=== PATIENT | female | born 2000 | race Two or more races ===

== ENCOUNTER 2021-01-05 01:29 | Emergency (ER) | payer OTHER, SELFPAY ==
[2021-01-05 02:56] VITALS: BP 138/69; PULSE 84; RESP 14; TEMP 36.7; O2SAT 100; BMI 27.4
[2021-01-05 06:36] LABS: MANUAL DIFF FLAG NO
--- NOTE | 2021-01-05 06:38 | ED_ITS ---
HPI - General Chief complaint: Vaginal Bleeding Stated complaint: 5 weeks /cramping,spotting Time Seen by Provider: 01/05/21 03:05 Source: patient Mode of arrival: ambulatory History of Present Illness HPI Narrative: 20-year-old female, gravid, EGA 5 weeks based on LMP, presents with complaints of cramping and vaginal spotting without clots but denies any associated fever, chills, nausea, vomiting, diarrhea. Patient states that during her course here in the emergency department the cramping has subsided as well as the vaginal spotting has lessened. She has an OB appointment next week. Related Data Previous Rx's Medication Instructions Recorded sulfamethoxazole 800 1 tab PO Q12H 3 Days #6 tab 01/05/21 mg-trimethoprim 160 mg tablet (Bactrim DS) Allergies Allergy/AdvReac Type Severity Reaction Status Date / Time No Known Allergies Allergy Verified 10/04/20 10:57 Review of Systems Review of Systems: Pertinent positives and negatives as stated in HPI 10 point review of systems is otherwise negative. PMFSH Past Medical History Source: nursing notes reviewed Medical History No significant past medical history Overweight (BMI 25.0-29.9) Surgical History No significant past surgical history Family History Family History Maternal Grandmother Breast cancer Diabetes mellitus Social History Social History Alcohol intake: never Advance Directives: No Advance Directives Information Provided: No Patient : Yes Physical Exam Vital Signs: Vital Signs: Last Vital Signs Temp 98.0 F 01/05/21 02:56 Pulse 84 01/05/21 02:56 Resp 14 01/05/21 02:56 BP 138/69 01/05/21 02:56 Pulse Ox 100 01/05/21 02:56 Body Mass Index 27.4 VITAL SIGNS: Reviewed. GENERAL: Well developed, well nourished, in no acute distress. HEAD: Normocephalic/atraumatic EYES: PERRLA, EOMI LUNGS: Normal breath sounds. No adventitious sounds or accessory muscle use. SpO2<100> CARDIOVASCULAR: Regular rate and rhythm without noted murmurs ABDOMEN: Soft, non-tender, non-distended with bowel sounds. SKIN: Inspection of the skin reveals no rashes NEUROLOGIC: Alert and oriented x 4. Course Course Course Narrative: 20-year-old female with history and clinical presentation likely secondary to UTI or dehydration and on review of all investigations patient has a significant UTI and urine is negative and patient report s vaginal spotting has improved as well as complete resolution of pelvic cramping. Initial antibiotics and then be discharged with remaining course instructions to follow-up with PCP. MDM - OB/Uterine Contractions Lab Data Result diagrams: 01/05/21 06:31 01/05/21 06:31 Labs: Lab Results 01/05/21 01/05/21 01/05/21 Range/Units 06:18 06:18 06:31 WBC 10.6 (4.8-10.8) X10*3/uL RBC 5.11 (4.20-5.50) X10*6/uL Hgb 13.5 (12.0-16.0) g/dl Hct 42.1 (37-47) % MCV 82.4 (80-98) fL MCH 26.4 L (27.0-33.0) pg MCHC 32.1 (31.0-35.0) g/dl RDW 12.7 (11.0-16.0) % Plt Count 290 (160-400) X10*3/uL MPV 11.6 (9.4-12.3) fL Immature Gran % (Auto) 0.3 (0.0-0.4) % Neut % (Auto) 70.1 (45-73) % Lymph % (Auto) 23.4 (20-40) % Kimble % (Auto) 5.1 (2-11) % Eos % (Auto) 0.7 (0-4) % Baso % (Auto) 0.4 (0-2) % Lymph # (Auto) 2.5 (1.2-4.9) X10*3/uL Kimble # (Auto) 0.5 (0.1-1.2) X10*3/uL Eos # (Auto) 0.1 (0.0-0.4) X10*3/uL Baso # (Auto) 0.0 (0.0-0.2) X10*3/uL Abs Immat Gran (auto) 0.03 (0.00-0.03) X10*3/uL Absolute Neuts (auto) 7.4 (2.0-8.3) X10*3/uL Absolute Nucleated RBC 0.000 (0.0-0.012) X10*3/uL Nucleated RBC % (auto) 0.0 (0.0-0.2) /100WBC Sodium (135-145) mmol/L Potassium (3.3-5.1) mmol/L Chloride (96-108) mmol/L Carbon Dioxide (22-29) mmol/L Anion Gap (12-20) BUN (9-16) mg/dL Creatinine (0.5-1.4) mg/dL Estim Creat Clear Calc Estimated GFR Random Glucose (60-115) mg/dL Calcium (8.4-10.2) mg/dL Total Bilirubin (0.0-1.0) mg/dL AST (5-31) U/L ALT (0-31) U/L Alkaline Phosphatase (39-117) U/L Total Protein (6.5-8.0) g/dL Albumin (3.5-5.0) g/dL Urine Color PINK Urine Appearance HAZY Urine pH 6.5 (5.0-8.0) Ur Specific [place] 1.010 (1.005-1.025) Urine Protein 1+ H (NEG-TRACE) MG/DL Urine Glucose (UA) NEG (NEG) MG/DL Urine Ketones NEG (NEG) MG/DL Urine Blood 3+ H (NEG) Urine Nitrite NEG (NEG) Ur Leukocyte Esterase 2+ H (NEG) Urine RBC 76-150 H (0) /HPF Urine WBC 10-14 H (0-4) /HPF Urine WBC Clumps NOTED Ur Squamous Epith Cells 1+ /LPF Urine Bacteria TRACE /LPF Urine Mucus TRACE /LPF Urine Test NEGATIVE (NEGATIVE) 01/05/21 Range/Units 06:31 WBC (4.8-10.8) X10*3/uL RBC (4.20-5.50) X10*6/uL Hgb (12.0-16.0) g/dl Hct (37-47) % MCV (80-98) fL MCH (27.0-33.0) pg MCHC (31.0-35.0) g/dl RDW (11.0-16.0) % Plt Count (160-400) X10*3/uL MPV (9.4-12.3) fL Immature Gran % (Auto) (0.0-0.4) % Neut % (Auto) (45-73) % Lymph % (Auto) (20-40) % Kimble % (Auto) (2-11) % Eos % (Auto) (0-4) % Baso % (Auto) (0-2) % Lymph # (Auto) (1.2-4.9) X10*3/uL Kimble # (Auto) (0.1-1.2) X10*3/uL Eos # (Auto) (0.0-0.4) X10*3/uL Baso # (Auto) (0.0-0.2) X10*3/uL Abs Immat Gran (auto) (0.00-0.03) X10*3/uL Absolute Neuts (auto) (2.0-8.3) X10*3/uL Absolute Nucleated RBC (0.0-0.012) X10*3/uL Nucleated RBC % (auto) (0.0-0.2) /100WBC Sodium 139 (135-145) mmol/L Potassium 3.8 (3.3-5.1) mmol/L Chloride 107 (96-108) mmol/L Carbon Dioxide 23 (22-29) mmol/L Anion Gap 13 (12-20) BUN 10 (9-16) mg/dL Creatinine 0.72 (0.5-1.4) mg/dL Estim Creat Clear Calc 121.6 Estimated GFR > 60 Random Glucose 99 (60-115) mg/dL Calcium 9.7 (8.4-10.2) mg/dL Total Bilirubin 0.5 (0.0-1.0) mg/dL AST 15 (5-31) U/L ALT 14 (0-31) U/L Alkaline Phosphatase 93 (39-117) U/L Total Protein 7.7 (6.5-8.0) g/dL Albumin 4.6 (3.5-5.0) g/dL Urine Color Urine Appearance Urine pH (5.0-8.0) Ur Specific [place] (1.005-1.025) Urine Protein (NEG-TRACE) MG/DL Urine Glucose (UA) (NEG) MG/DL Urine Ketones (NEG) MG/DL Urine Blood (NEG) Urine Nitrite (NEG) Ur Leukocyte Esterase (NEG) Urine RBC (0) /HPF Urine WBC (0-4) /HPF Urine WBC Clumps Ur Squamous Epith Cells /LPF Urine Bacteria /LPF Urine Mucus /LPF Urine Test (NEGATIVE) Discharge Plan Discharge Clinical Impression: Vaginal spotting, UTI (urinary tract infection) Patient Disposition: Home, Self-Care Instructions: Urinary Tract Infection in Women (ED) Additional Instructions: Follow-up with your primary care provider in the next 1-2 days for re- evaluation. Return to the ER for acute worsening of symptoms. Prescriptions: New sulfamethoxazole-trimethoprim [Bactrim DS] 800-160 mg tablet 1 tab PO Q12H 3 Days Qty: 6 RF: 0
[2021-01-05 06:43] LABS: Glucose Urine UA NEG (NEG); Leukocyte Esterase Urine 2+ (NEG); Nitrite Urine NEG (NEG); PH 6.5 (5.0-8.0); UACC Culture Trigger YES; Urine Blood 3+ (NEG); Urine Ketones NEG (NEG); Urine Protein 1+ MG/DL (NEG-TRACE)
[2021-01-05 06:44] LABS: Basophils Percent Auto 0.4 % (0-2); Eosinophils Absolute Auto 0.1 X10*3/uL (0.0-0.4); Eosinophils Percent Auto 0.7 % (0-4); Hematocrit 42.1 % (37-47); Hemoglobin 13.5 g/dl (12.0-16.0); Imm Gran Abs Auto 0.03 X10*3/uL (0.00-0.03); Imm Gran Pct Auto 0.3 % (0.0-0.4); Lymphocytes Absolute Auto 2.5 X10*3/uL (1.2-4.9); Lymphocytes Percent Auto 23.4 % (20-40); Mean Corpuscular HGB Conc 32.1 g/dl (31.0-35.0); Mean Corpuscular Hemoglobin 26.4 pg (27.0-33.0); Mean Corpuscular Volume 82.4 fL (80-98); Mean Platelet Volume 11.6 fL (9.4-12.3); Monocytes Absolute Auto 0.5 X10*3/uL (0.1-1.2); Monocytes Percent Auto 5.1 % (2-11); Neutrophils Absolute Auto 7.4 X10*3/uL (2.0-8.3); Neutrophils Percent Auto 70.1 % (45-73); Platelet Count 290 X10*3/uL (160-400); Red Blood Count 5.11 X10*6/uL (4.20-5.50); Red Cell Distribution Width 12.7 % (11.0-16.0); White Blood Count 10.6 X10*3/uL (4.8-10.8)
[2021-01-05 06:47] LABS: Appearance Urine HAZY; Color Urine PINK
[2021-01-05 06:54] LABS: Bacteria Urine TRACE /LPF; Mucus Urine TRACE /LPF; Squamous Epithelial Cell Urine 1+ /LPF; UPreg QC Valid YES; Urine Pregnancy NEGATIVE (NEGATIVE); WBC Clumps Urine NOTED
[2021-01-05 06:59] LABS: Alanine Aminotransferase 14 U/L (0-31); Albumin Level 4.6 g/dL (3.5-5.0); Alkaline Phosphatase 93 U/L (39-117); Anion Gap 13 (12-20); Aspartate Amino Transferase 15 U/L (5-31); Bilirubin Total 0.5 mg/dL (0.0-1.0); Blood Urea Nitrogen 10 mg/dL (9-16); Calcium 9.7 mg/dL (8.4-10.2); Carbon Dioxide 23 mmol/L (22-29); Chloride 107 mmol/L (96-108); Creatinine Clr Calc Pharmacy 121.6; Estimated Glomerular Filt Rate > 60; Glucose Random 99 mg/dL (60-115); Potassium 3.8 mmol/L (3.3-5.1); Sodium 139 mmol/L (135-145); Total Protein 7.7 g/dL (6.5-8.0)
[2021-01-05] MEDS: Nitrofurantoin Monohyd/M-Cryst 100 MG CAPSULE PO (07:45)
== END 2021-01-05 07:47 | disposition home or self-care (01) ==
PROVIDERS: Emergency Provider Student in an Organized Health Care Education/Training Program; PCP Internal Medicine
DX: O20.9 Hemorrhage in early pregnancy, unspecified (principal); Z3A.01 Less than 8 weeks gestation of pregnancy; Z79.899 Other long term (current) drug therapy
CPT/HCPCS: 36415; 80053; 81001; 81025; 85025; 87086; 87088; 87186; 99283

== ENCOUNTER → 2021-01-19 08:49 | Outpatient (BNVA) | payer OTHER, SELFPAY | PROVIDERS: PCP Internal Medicine; Visit Provider Advanced Practice Midwife | DX: N92.6 Irregular menstruation, unspecified (principal); E66.9 Obesity, unspecified; Z68.26 Body mass index [BMI] 26.0-26.9, adult; Z32.02 Encounter for pregnancy test, result negative | CPT/HCPCS: 81025; 99202 ==

== ENCOUNTER 2021-02-26 14:50 | Outpatient (REF) | payer OTHER, SELFPAY ==
[2021-02-27 03:33] LABS: CT PCR NOT DETECTED (Not Detect.); NG PCR NOT DETECTED (Not Detect.)
== END 2021-02-26 14:51 | disposition home or self-care (01) ==
LOC: HO.LAB 14:50
PROVIDERS: PCP Internal Medicine; Visit Provider Advanced Practice Midwife
DX: Z01.419 Encounter for gynecological examination (general) (routine) without abnormal findings (principal); Z20.2 Contact with and (suspected) exposure to infections with a predominantly sexual mode of transmission
CPT/HCPCS: 87491; 87591; 88142

== ENCOUNTER → 2021-06-26 12:59 | Outpatient (BNVA) | payer OTHER, SELFPAY | PROVIDERS: PCP Internal Medicine; Visit Provider Advanced Practice Midwife | DX: N92.6 Irregular menstruation, unspecified (principal); R11.0 Nausea | CPT/HCPCS: 81025; 99212 ==

== ENCOUNTER 2021-06-29 14:06 | Outpatient (REF) | payer OTHER, SELFPAY ==
--- NOTE | ~2021-06-29 | US_ITS ---
EXAMINATION: OBSTETRICAL ULTRASOUND, FIRST TRIMESTER HISTORY: 21-year-old at 6.6 weeks of gestation Irregular menses LMP: 05/12/2021 COMPARISON: None TECHNIQUE: Real time transabdominal imaging with color and M-mode Doppler. FINDINGS: A single, live IUP CRL of 11.3 mm c/w 7.2wks is noted. Heart Rate: 149 beats per minute. Both maternal ovaries are seen and appear normal. GESTATIONAL AGE: 1. GA from LMP: 6.6 wks 2. GA from AUA: 7.2 wks ESTIMATED DATE OF DELIVERY: 1. HUSSAIN from LMP: 02/16/2022 2. HUSSAIN from AUA: 02/13/2022 US/US OB <= 14 weeks fetus IMPRESSION: 1. A single live IUP 2. CRL is consistent with 7.2 weeks of gestation confirming her LMP HUSSAIN of 02/16/2022' 3. Normal ovaries Thank you very much for this referral. This note was generated with a voice recognition program. Please excuse any errors which may have been overlooked during my review of this note. Sometimes these errors may affect the content or meaning of a given sentence.
== END 2021-06-29 14:07 | disposition home or self-care (01) ==
LOC: HO.US 14:06
PROVIDERS: Visit Provider Advanced Practice Midwife
DX: Z32.01 Encounter for pregnancy test, result positive (principal); N92.6 Irregular menstruation, unspecified
CPT/HCPCS: 76801

== ENCOUNTER → 2021-07-18 09:37 | Outpatient (BNVA) | payer OTHER, SELFPAY | PROVIDERS: PCP Internal Medicine; Visit Provider Advanced Practice Midwife | DX: Z32.01 Encounter for pregnancy test, result positive (principal) | CPT/HCPCS: 99212 ==

== ENCOUNTER 2021-07-23 11:07 | Outpatient (REF) | payer OTHER, SELFPAY ==
[2021-07-23 13:29] LABS: Hematocrit 38.9 % (37.0-47.0); Hemoglobin 12.4 g/dl (12.0-16.0); Mean Corpuscular HGB Conc 31.9 g/dl (31.0-35.0); Mean Corpuscular Hemoglobin 26.9 pg (27.0-33.0); Mean Corpuscular Volume 84.4 fL (80.0-98.0); Mean Platelet Volume 12.4 fL (9.4-12.3); Platelet Count 234 X10*3/uL (160-400); Red Blood Count 4.61 X10*6/uL (4.20-5.50); Red Cell Distribution Width 12.9 % (11.0-16.0); White Blood Count 12.9 X10*3/uL (4.8-10.8)
[2021-07-23 13:49] LABS: Glucose 1 Hour PP 50gm Dose 108 mg/dL (60-140)
[2021-07-23 14:11] LABS: Syphilis Screen Nonreactive (Nonreactive)
[2021-07-23 17:14] LABS: Amphetamine Screen Urine Not Detected (Not Detect); Barbiturates, Urine Not Detected (Not Detect); Benzodiazepines Screen Urine Not Detected (Not Detect); Cannabinoid Screen Urine Not Detected (Not Detect); Cocaine Screen Urine Not Detected (Not Detect); Fentanyl, urine Not Detected (Not Detect); Opiate Screen Urine Not Detected (Not Detect); Phencyclidine Screen Urine Not Detected (Not Detect)
[2021-07-24 04:49] LABS: ~HepC Num1 0.11 S/CO (0.00-0.79); ~Hepatitis C Antibody Nonreactive (Nonreactive)
[2021-07-24 04:59] LABS: HIV AB/AG Nonreactive (Nonreactive); HIV Num 1 0.06 S/CO (0.00-0.99); Hepatitis B Surface Antigen Negative (Negative)
[2021-07-24 21:16] LABS: Rubella IgG Antibody <0.90 Index; Varicella IgG Antibody <135.00 index
== END 2021-07-23 11:08 | disposition home or self-care (01) ==
LOC: HO.LAB 11:07
PROVIDERS: PCP Internal Medicine; Visit Provider Advanced Practice Midwife
DX: Z32.01 Encounter for pregnancy test, result positive (principal)
CPT/HCPCS: 80307; 85027; 86762; 86780; 86787; 86803; 86850; 86900; 86901; 87086; 87088; 87186; 87340; 87389

== ENCOUNTER 2021-07-27 10:06 | Outpatient (REF) | payer OTHER, SELFPAY ==
--- NOTE | ~2021-07-27 | US_ITS ---
EXAMINATION: OBSTETRICAL ULTRASOUND, FIRST TRIMESTER HISTORY: 21-year-old at 10.6 weeks NT screening COMPARISON: 06/29/2021 TECHNIQUE: Real time transabdominal imaging with color and M-mode Doppler. FINDINGS: A single, live IUP CRL of 50.7 mm c/w 11.6wks is noted. Heart Rate: 156 beats per minute. Normal yolk sac seen. NT was 0.7.mm. NB Present The embryo appears sonographically wnl for this GA. Both maternal ovaries are seen and appear normal. GESTATIONAL AGE: 1. Established GA: 10.6 wks 2. GA from AUA: 11.6 wks ESTIMATED DATE OF DELIVERY: 1. Established HUSSAIN: 02/16/2022 2. HUSSAIN from [facility]: 02/09/2022 US/US OB 1T nuc measure IMPRESSION: 1. A single live IUP 2. Size equals dates 3. NT of 0.7 mm MFM Consultation: I reviewed the ultrasound findings along with significance of NT measurement. The NT of less than 3mm is generally reassuring. However, the sensitivity for T21 detection is only 60%. I reviewed the availability of serum aneuploidy screening which includes cell-free DNA and placental protein based tests. I discussed the sensitivity, false-positive rate, and other limitations associated with each test. I also reviewed the availability of invasive diagnostic tests that are associated small but definite risk of miscarriage. We also reviewed the differences between screening tests and diagnostic tests. After our discussion, she opted for the First trimester screening that is based on cell-free DNA or non-invasive testing (NIPT). A follow up at 18 weeks for survey has been scheduled. Thank you very much for this referral. Total time 30 minutes. The time spent was devoted to counseling the patient about the disease and diagnosis, coordinating care including reviewing her records, pertinent lab data and studies, as well as discussing diagnostic evaluation and workup, plan therapeutic interventions and future disposition of care. This includes any additional research needed to obtain further information in formulating the plan of care of this patient. This note was generated with a voice recognition program. Please excuse any errors which may have been overlooked during my review of this note. Sometimes these errors may affect the content or meaning of a given sentence.
== END 2021-07-27 10:07 | disposition home or self-care (01) ==
LOC: HO.US 10:06
PROVIDERS: Visit Provider Advanced Practice Midwife
DX: Z34.91 Encounter for supervision of normal pregnancy, unspecified, first trimester (principal); Z3A.11 11 weeks gestation of pregnancy
CPT/HCPCS: 76813

== ENCOUNTER 2021-08-02 11:09 | Outpatient (REF) | payer OTHER, SELFPAY ==
[2021-08-03 00:56] LABS: CT PCR NOT DETECTED (Not Detect.); NG PCR NOT DETECTED (Not Detect.)
[2021-08-03 12:15] LABS: BV Int Neg Control Negative (Negative); BV Int Pos Control Positive (Positive)
== END 2021-08-02 11:10 | disposition home or self-care (01) ==
LOC: HO.LAB 11:09
PROVIDERS: Visit Provider Advanced Practice Midwife
DX: Z34.91 Encounter for supervision of normal pregnancy, unspecified, first trimester (principal); Z3A.12 12 weeks gestation of pregnancy
CPT/HCPCS: 81003; 87480; 87491; 87510; 87591; 87660; 99212

== ENCOUNTER → 2021-08-30 15:08 | Outpatient (BNVA) | payer OTHER, SELFPAY | PROVIDERS: Visit Provider Advanced Practice Midwife | DX: Z34.82 Encounter for supervision of other normal pregnancy, second trimester (principal); Z36.3 Encounter for antenatal screening for malformations | CPT/HCPCS: 81003; 99212 ==

== ENCOUNTER 2021-09-21 08:57 | Outpatient (REF) | payer OTHER, SELFPAY ==
--- NOTE | ~2021-09-21 | US_ITS ---
EXAMINATION: US OBSTETRICAL CLINICAL INFORMATION: 21-year-old at 18.6 weeks of gestation Screening for anomaly COMPARISON: 07/27/2021 TECHNIQUE: Real-time transabdominal ultrasound was performed using C1-5 megahertz transducer. FINDINGS: A single, active, fetus is seen in breech presentation. The placenta is anterior without previa, and the amniotic fluid volume is wnl. MEASUREMENTS: 1. Biparietal Diameter: 4.6 cm; 20.1 wks 2. Occipital Frontal Diameter: 6.3 cm 3. Head Circumference: 17.9 cm; 20.3 wks 4. Abdominal Circumference: 16.1 cm; 21.2 wks 5. Femur Length: 3.4 cm; 20.5 wks 6. Humerus Length: 3.1 cm; 20.1 wks 7. Tibia Length: 2.8 cm; 20.0 wks 8. Ulna Length: 2.9 cm; 20.6 wks 9. Lateral ventricle: 0.63 cm 10. Cerebellum: 1.96 cm; 20.1 wks 11. Cisterna Magna: 0.57 cm 12. Nuchal Fold: 3.9 mm 13. Heart Rate: 143 beats per minute Rt ovary: normal Lt ovary: normal Cervical length 3.6 cm on T/A. GESTATIONAL AGE: 1. Established GA: 18.6 wks 2. GA from [facility]: 20.5 wks ESTIMATED DATE OF DELIVERY: 1. Established HUSSAIN: 02/16/2022 2. HUSSAIN from [facility]: 02/03/2022 ANATOMY: The visualized anatomy includes but not limited to: 1. Cranium: Normal 2. Intracranial anatomy: cavum septum pellucidi, lateral ventricles, choroid plexus, cerebellum, posterior fossa, third and fourth ventricles. 3. face: orbits, lip/palate, profile, nasal bone 4. Heart: four-chamber view of the heart, ventricular septum, foramen ovale, pulmonary vein, left and right outflow tracts, three-vessel view, 3 vessel trachea view, aortic and ductal arches, situs.. 5. Diaphragm: Normal 6. Abdominal wall: Normal 7. Cord Insertion: Normal 8. Spine: Cervical, thoracic, lumbar, sacral. 9. Stomach: Normal size and shape 10. Right Kidney: Normal 11. Left Kidney: Normal 12. 3 vessel cord: Normal 13. Upper extremity: Open hands, fifth digit. 14. Lower extremity: Tibia, fibula, bilateral feet. 15. Bladder: Normal 16. Genitalia: Male, patient aware US/US OB /maternal detail IMPRESSION: 1. Single, living, intrauterine with appropriate biometry. 2. Normal survey DISCUSSION: I reviewed today's ultrasound findings. We discussed the limitations of ultrasound in diagnosing aneuploidy and other congenital abnormalities. I reviewed the differences between screening test and diagnostic test. Amniocentesis was discussed and declined. She was informed that the baseline incidence of congenital abnormalities is approximately 3-5%. Not all these conditions are diagnosable in utero. RECOMMENDATIONS: Follow-up when necessary Thank you for allowing me to participate in her care. Total time 20 minutes. The time spent was devoted to counseling the patient about the disease and diagnosis, coordinating care including reviewing her records, pertinent lab data and studies, as well as discussing diagnostic evaluation and workup, plan therapeutic interventions and future disposition of care. This includes any additional research needed to obtain further information in formulating the plan of care of this patient. This note was generated with a voice recognition program. Please excuse any errors which may have been overlooked during my review of this note. Sometimes these errors may affect the content or meaning of a given sentence.
== END 2021-09-21 08:58 | disposition home or self-care (01) ==
LOC: HO.US 08:57
PROVIDERS: Visit Provider Advanced Practice Midwife
DX: Z36.3 Encounter for antenatal screening for malformations (principal); Z34.92 Encounter for supervision of normal pregnancy, unspecified, second trimester; Z3A.18 18 weeks gestation of pregnancy
CPT/HCPCS: 76811

== ENCOUNTER → 2021-09-27 09:17 | Outpatient (BNVA) | payer OTHER, SELFPAY | PROVIDERS: Visit Provider Advanced Practice Midwife | DX: Z34.82 Encounter for supervision of other normal pregnancy, second trimester (principal); Z3A.19 19 weeks gestation of pregnancy | CPT/HCPCS: 81003; 99212 ==

== ENCOUNTER 2021-10-05 10:11 | Outpatient (REF) | payer OTHER, SELFPAY | END 2021-10-05 10:12 | disposition home or self-care (01) | LOC: HO.US 10:11 | PROVIDERS: Visit Provider Advanced Practice Midwife | DX: Z13.89 Encounter for screening for other disorder (principal) ==

== ENCOUNTER → 2021-10-25 09:41 | Outpatient (BNVA) | payer OTHER, SELFPAY | PROVIDERS: Visit Provider Advanced Practice Midwife | DX: Z34.82 Encounter for supervision of other normal pregnancy, second trimester (principal); Z3A.23 23 weeks gestation of pregnancy | CPT/HCPCS: 81003; 99212 ==

== ENCOUNTER → 2021-11-22 08:58 | Outpatient (BNVA) | payer OTHER, SELFPAY | PROVIDERS: Visit Provider Advanced Practice Midwife | DX: Z34.82 Encounter for supervision of other normal pregnancy, second trimester (principal); Z3A.27 27 weeks gestation of pregnancy | CPT/HCPCS: 81003; 99212 ==

== ENCOUNTER 2021-12-05 10:32 | Outpatient (REF) | payer OTHER, SELFPAY ==
[2021-12-05 11:57] LABS: Hematocrit 35.3 % (37.0-47.0); Hemoglobin 11.4 g/dl (12.0-16.0); Mean Corpuscular HGB Conc 32.3 g/dl (31.0-35.0); Mean Corpuscular Volume 83.5 fL (80.0-98.0); Platelet Count 232 X10*3/uL (160-400); Red Blood Count 4.23 X10*6/uL (4.20-5.50); Red Cell Distribution Width 12.8 % (11.0-16.0); White Blood Count 12.7 X10*3/uL (4.8-10.8)
[2021-12-05 12:33] LABS: Glucose 1 Hour PP 50gm Dose 104 mg/dL (60-140)
[2021-12-05 12:53] LABS: Syphilis Screen Nonreactive (Nonreactive)
== END 2021-12-05 10:33 | disposition home or self-care (01) ==
LOC: HO.LAB 10:32
PROVIDERS: PCP Internal Medicine; Visit Provider Advanced Practice Midwife
DX: Z34.92 Encounter for supervision of normal pregnancy, unspecified, second trimester (principal)
CPT/HCPCS: 36415; 85027; 86780

== ENCOUNTER → 2021-12-07 13:36 | Outpatient (BNVA) | payer OTHER, SELFPAY | PROVIDERS: PCP Internal Medicine; Visit Provider Advanced Practice Midwife | DX: Z34.83 Encounter for supervision of other normal pregnancy, third trimester (principal); Z3A.29 29 weeks gestation of pregnancy | CPT/HCPCS: 99212 ==

== ENCOUNTER → 2021-12-21 13:07 | Outpatient (BNVA) | payer OTHER, SELFPAY | PROVIDERS: PCP Internal Medicine; Visit Provider Advanced Practice Midwife | DX: O21.9 Vomiting of pregnancy, unspecified (principal); O09.293 Supervision of pregnancy with other poor reproductive or obstetric history, third trimester; Z3A.31 31 weeks gestation of pregnancy | CPT/HCPCS: 81003; 90471; 90715; 99212 ==

== ENCOUNTER → 2022-01-08 10:48 | Outpatient (BNVA) | payer OTHER, SELFPAY | PROVIDERS: PCP Internal Medicine; Visit Provider Obstetrics & Gynecology | DX: O99.513 Diseases of the respiratory system complicating pregnancy, third trimester (principal); R06.02 Shortness of breath; Z3A.34 34 weeks gestation of pregnancy | CPT/HCPCS: 99212 ==

== ENCOUNTER → 2022-01-09 14:40 | Outpatient (REF) | payer OTHER, SELFPAY ==
--- NOTE | 2022-01-09 14:44 | CA_ITS ---
Transthoracic Echocardiogram Patient (Last, First, Middle): Susan Leggett, Gender: Female Date of : 2000 Age: 21 Procedure Date: 01/09/2022 Procedure Type: Transthoracic Echocardiogram Location: OP Height: 162.56 cm Weight: 80.74 kg BSA: 1.86 m2 Heart Rate: 81 bpm BP: 110 / 70 mmHg Improvement Intern: SB Referring MD: Patricio Mckoy MD Open Tenter Operator: Sky Stephen MD Symptoms: R06.02 - Shortness of breath Study Quality: Limited apical/no subcostal window/34 weeks IUP ECG Rhythm: Sinus Conclusions: - 1. Normal LV systolic and diastolic function 2. Normal cardiac valvular Doppler 3. No gross pericardial effusion Findings Left Ventricle Normal left ventricular size, thickness, and systolic function. The visually estimated ejection fraction is between 60-65%. Spectral Doppler is indicative of a normal filling pattern. Right Ventricle Normal right ventricular cavity size and systolic function. Atria The left atrium is normal in size. Interatrial shunt cannot be excluded. The right atrium was not well visualized. Aortic Valve Normal aortic valve structure and function. There is no aortic valve stenosis. There is no aortic valve regurgitation. Mitral Valve Normal mitral valve structure and function. There is trace mitral valve regurgitation. There is no mitral valve stenosis. Pulmonic Valve The pulmonic valve was not well visualized. Tricuspid Valve Likely normal tricuspid valve structure and function. Tricuspid regurgitation envelope is inadequate for calculation of right ventricular systolic pressure. Great Vessels All visible segments of the aorta are normal in size. The pulmonary artery was not well visualized. Venous The inferior vena cava was not well visualized. Pericardium/Pleural There is no evidence of pericardial effusion. Prior Study Comparison No prior study available for comparison. Measurements 2D Linear Measurements IVSd: 0.87 0.6-0.9/0.6-1.0 cm LVIDd: 3.87 3.9-5.3/4.2-5.9 cm LVIDd Index: 2.08 2.4-3.2/2.2-3.1 cm/m2 LVIDs: 2.16 2.0-3.6 cm LVPWd: 0.65 0.7-1.1 cm LA Diam: 2.80 2.7-3.8/3.0-4.0 cm LAIDs Index: 1.51 1.5-2.3 cm/m2 LV Mass: 101.85 67-162/88-224 g LV Mass Index: 54.76 43-95/49-115 g/m2 LVOT Diam: 2.00 3.0+(-)1.3 cm Mitral Valve MV Pk E: 0.73 MV PK A: 0.56 MV Decel Time: 236.00 E/A: 1.30 E'Lateral: 10.90 E'Medial: 11.10 E/E' Med: 6.60 E/E' Lat: 6.70 PHT: 69.00 MVA PHT: 3.19 Decel Gulf: 3.09 Aortic Valve AoV Pk Grayson: 1.30 AoV Mn Grayson: 0.91 AoV VTI: 0.26 AoV Pk Grad: 7.00 Aov Mn Grad: 4.00 LILY Cont.VTI: 2.65 LVOT LVOT Pk Grayson: 1.06 LVOT Mn Grayson: 0.71 LVOT VTI: 0.22 LVOT Pk Grad: 4.00 LVOT Mn Grad: 2.00 LVOT Diam: 2.00 LVOT Area: 3.14 Diastolic Function MV Pk E: 0.73 MV Pk A: 0.56 E/A: 1.30 E'Medial: 11.10 E/E' Med: 6.60 E' Laterial: 10.90 E/E' Lat: 6.70 Right Ventricle TAPSE (mm): 21.70 TVS' Grayson: 10.00 Great Vessels Aorta Sinus of Valsalva: 2.90 2.0-3.5 cm Ao Asc: 2.30 2.1-3.4 cm Ao Arch: 1.80 Pulmonary Valve PV Pk Grayson: 0.99 Peak PV Grad: 4.00 Updated in Other Vendor System with Status of Final Sky Stephen MD electronically signed on 01/09/2022 3:46:14 PM with status of Final
== END ==
LOC: HO.CARD 14:40
PROVIDERS: PCP Internal Medicine; Visit Provider Obstetrics & Gynecology
DX: O26.893 Other specified pregnancy related conditions, third trimester (principal); R06.02 Shortness of breath
CPT/HCPCS: 93306

== ENCOUNTER 2022-01-23 11:56 | Outpatient (REF) | payer OTHER, SELFPAY ==
[2022-01-24 06:32] LABS: CT PCR NOT DETECTED (Not Detect.); NG PCR NOT DETECTED (Not Detect.)
== END 2022-01-23 11:57 | disposition home or self-care (01) ==
LOC: HO.LAB 11:56
PROVIDERS: PCP Internal Medicine; Visit Provider Advanced Practice Midwife
DX: Z34.93 Encounter for supervision of normal pregnancy, unspecified, third trimester (principal); Z3A.36 36 weeks gestation of pregnancy
CPT/HCPCS: 81003; 87081; 87491; 87591; 99212

== ENCOUNTER → 2022-01-30 10:29 | Outpatient (BNVA) | payer OTHER, SELFPAY | PROVIDERS: PCP Internal Medicine; Visit Provider Obstetrics & Gynecology | DX: O09.13 Supervision of pregnancy with history of ectopic pregnancy, third trimester (principal); O09.293 Supervision of pregnancy with other poor reproductive or obstetric history, third trimester; Z3A.37 37 weeks gestation of pregnancy | CPT/HCPCS: 99212 ==

== ENCOUNTER → 2022-02-06 10:17 | Outpatient (BNVA) | payer OTHER, SELFPAY | PROVIDERS: PCP Internal Medicine; Visit Provider Obstetrics & Gynecology | DX: Z34.83 Encounter for supervision of other normal pregnancy, third trimester (principal); Z3A.38 38 weeks gestation of pregnancy | CPT/HCPCS: 99212 ==

== ENCOUNTER → 2022-02-13 10:01 | Outpatient (BNVA) | payer OTHER, SELFPAY | PROVIDERS: PCP Internal Medicine; Visit Provider Obstetrics & Gynecology | DX: Z34.93 Encounter for supervision of normal pregnancy, unspecified, third trimester (principal) | CPT/HCPCS: 99212 ==

== ENCOUNTER → 2022-04-03 09:53 | Outpatient (BNVA) | payer OTHER, SELFPAY | PROVIDERS: PCP Internal Medicine; Visit Provider Advanced Practice Midwife | DX: Z39.2 Encounter for routine postpartum follow-up (principal) | CPT/HCPCS: 99212 ==

== ENCOUNTER → 2022-10-08 14:31 | Outpatient (BNVA) | payer OTHER, SELFPAY | PROVIDERS: PCP Internal Medicine; Visit Provider Advanced Practice Midwife | DX: O26.21 Pregnancy care for patient with recurrent pregnancy loss, first trimester (principal); Z32.01 Encounter for pregnancy test, result positive; Z3A.10 10 weeks gestation of pregnancy | CPT/HCPCS: 81025; 99212 ==

== ENCOUNTER → 2022-10-15 10:09 | Outpatient (BNVA) | payer OTHER, SELFPAY | PROVIDERS: PCP Internal Medicine; Visit Provider Advanced Practice Midwife | DX: Z34.81 Encounter for supervision of other normal pregnancy, first trimester (principal); Z3A.11 11 weeks gestation of pregnancy | CPT/HCPCS: 99212 ==

== ENCOUNTER 2022-10-18 09:09 | Outpatient (REF) | payer OTHER, SELFPAY ==
[2022-10-18 11:04] LABS: Hematocrit 37.8 % (37.0-47.0); Hemoglobin 11.7 g/dl (12.0-16.0); Mean Corpuscular Hemoglobin 25.2 pg (27.0-33.0); Mean Corpuscular Volume 81.3 fL (80.0-98.0); Mean Platelet Volume 11.6 fL (9.4-12.3); Platelet Count 238 X10*3/uL (160-400); Red Blood Count 4.65 X10*6/uL (4.20-5.50); Red Cell Distribution Width 13.7 % (11.0-16.0)
[2022-10-18 11:12] LABS: Amphetamine Screen Urine Not Detected (Not Detect); Barbiturates, Urine Not Detected (Not Detect); Benzodiazepines Screen Urine Not Detected (Not Detect); Cannabinoid Screen Urine Not Detected (Not Detect); Cocaine Screen Urine Not Detected (Not Detect); Fentanyl, urine Not Detected (Not Detect); Opiate Screen Urine Not Detected (Not Detect); Phencyclidine Screen Urine Not Detected (Not Detect)
[2022-10-18 11:19] LABS: Glucose 1 Hour PP 50gm Dose 98 mg/dL (60-140)
[2022-10-18 11:44] LABS: Syphilis Screen Nonreactive (Nonreactive)
[2022-10-18 11:46] LABS: HBsAGNum1 0.27 S/CO (0.00-0.99); HIV AB/AG Nonreactive (Nonreactive); HIV Num 1 0.06 S/CO (0.00-0.99); Hepatitis B Surface Antigen Negative (Negative); ~HepC Num1 0.11 S/CO (0.00-0.79); ~Hepatitis C Antibody Nonreactive (Nonreactive)
[2022-10-23 13:24] LABS: Rubella IgG Antibody <0.90 Index; Varicella IgG Antibody <135.00 index
[2022-10-28 15:02] LABS: CF Ethnicity NG; Cystic Fibrosis NEGATIVE (NEGATIVE)
== END 2022-10-18 09:10 | disposition home or self-care (01) ==
LOC: HO.LAB 09:09
PROVIDERS: PCP Internal Medicine; Visit Provider Advanced Practice Midwife
DX: Z32.01 Encounter for pregnancy test, result positive (principal)
CPT/HCPCS: 80307; 81220; 82950; 85027; 86762; 86780; 86787; 86803; 86850; 86900; 87086; 87340; 87389

== ENCOUNTER 2022-11-08 13:13 | Outpatient (REF) | payer OTHER, SELFPAY ==
[2022-11-09 01:16] LABS: CT PCR NOT DETECTED (Not Detect.); NG PCR NOT DETECTED (Not Detect.)
[2022-11-09 10:01] LABS: BV Int Neg Control Negative (Negative); BV Int Pos Control Positive (Positive)
== END 2022-11-08 13:14 | disposition home or self-care (01) ==
LOC: HO.LNP 13:13
PROVIDERS: PCP Internal Medicine; Visit Provider Advanced Practice Midwife
DX: Z34.92 Encounter for supervision of normal pregnancy, unspecified, second trimester (principal); Z3A.14 14 weeks gestation of pregnancy
CPT/HCPCS: 0353U; 81003; 87480; 87510; 87660; 99212

== ENCOUNTER 2022-11-28 09:46 | Outpatient (REF) | payer OTHER, SELFPAY | END 2022-11-28 09:47 | disposition home or self-care (01) | LOC: HO.LAB 09:46 | PROVIDERS: PCP Internal Medicine; Visit Provider Advanced Practice Midwife | DX: Z34.92 Encounter for supervision of normal pregnancy, unspecified, second trimester (principal) | CPT/HCPCS: 36415; 81003; 81511; 99212 ==

== ENCOUNTER 2022-12-26 15:08 | Outpatient (AMB) | payer OTHER, SELFPAY ==
--- NOTE | 2022-12-26 15:12 | A.OFFVISPN_ITS ---
Intake Vital Signs 12/26/22 15:13 Height 5 ft 4 in Weight 168 lb BMI 28.8 BP 104/56 L Intake Visit Reasons: JOSEFA Intake Note: The patient agreed to use of a medical librarian during this encounter. Scribed for MARTINA Swain by Rafia Silver medical librarian, on 12/26/2022. Allergies No Known Allergies Allergy (Verified 12/26/22 15:13) Patient : Yes PFSH Medical History No significant past medical history Overweight (BMI 25.0-29.9) Surgical History No significant past surgical history Family History Maternal Grandmother Breast cancer Diabetes mellitus Maternal Aunt Diabetes mellitus Social History Household Members: Significant Other and Children Both parents involved: Yes Caregiver staying overnight: No Housing: Condominium Are you a primary nurse behavioral health care to a significant other at home: No Do you presently have visiting nurse or other home services: No 75 years or older and lives alone: No Alcohol intake: never Patient Tobacco Use Status: Never used Tobacco Agree to transfusion: Yes service: No Current occupational status: employed 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 Date GA/Weeks Outcome Route Wt Inf Gender Labor Tarah Anesthesia Location Provider Complicate 01/05/21 5 spontaneous 02/17/23 40 live - full term 8 lb Male epidural [facility] none Visit HUSSAIN Calculator Estimated Delivery Date Method Current WG Current Estimate 05/04/23 LMP (Certain) 21w 4d Other Estimates 05/01/23 Ultrasound #1 22w 0d 05/01/23 Ultrasound #2 22w 0d Expected Delivery Route/Plan Specific Issues/Plans G3 ?P1 ? EDC: 05/01/23 ?by LMP c/w US? ? ?Blood type: B pos Problem List: 1. FH DM 2. closely spaced , conceived within 6months of delivery 3. Varicella non immune 4. Rubella non immune Testing: Panorama/and or First Tri screen: ? ?risk NT scan: nl Quad screen: neg FAS: nl scan Glucose: early ? 28 wk glucose: ? CBC 1st Tri: ? 28 wk. 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-?-?-?-?-?-?-?-?-?-?-?- 12/26/22 -?-?-?-?-?-?-?-?-?-?-?-?- 21w 4d 168 lb (+18 lb) 21 150 104/56 168 l b -?-?-?-?-?-?-?-?-?-?-?-?- Notes Visit Date: 12/26/22 Last Updated by: Richa Nguyen CNM Note author: Richa Nguyen CNM/Rafia Silver medical librarian 21. 4 wk JOSEFA. Feeling well. Taking PNV. Hydrating well and good appetite Good FM, no LOF, VB or abd pain. C/o right sided sciatica. Discussed: PTL - LOF, VB, abd pain . Advised stretching, exercises, heating pad and PT for sciatica if desired, advised to message if wanting a referral Advised to eat small frequent meals and stay cool and hydrated. PEC - headaches: not resolved with 2 regular strength Tylenol doses, visual disturbances warnings and when to call for further evaluation. Reviewed when to call for any VB, LOF, contractions, Kick counts reviewed and when to call for any decreased FM. Labs reviewed, informed pp vaccinations, iron info. Discussed to call the service here for any emergencies/deliveries to be directed to [facility]. RTO in 4 weeks. Visit Date: 11/28/22 Last Updated by: Prabha Muhammad CNM Patient is here at 17 weeks 4 days for her visit. Her nuchal translucency ultrasound was done at [facility] but she did not go for the lab work as discussed at the previous visit so she today we will do the [place] AFP quad screen to screen for Down syndrome and open neural tube defects. She has her anatomy survey set up for 2 weeks from now at [facility]. She is eating well doing well appropriate weight gain doing well with her baby at home and working at the [employer] in [place]. She is not having any issues or worries or concerns at all. Continue excellent self-care and we will see her in 4 weeks and review any of the above testing as appropriate. Visit Date: 11/08/22 Last Updated by: Prabha Muhammad CNM Patient is here for her new OB physical visit. 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 She has her mother here at the visit with her 8-month-old who was also doing very well. She had her nuchal translucency ultrasound at [facility] but says they did not tell her to go get any blood work after on her own though she went and she had the ultrasound to find out the gender and did a blood test for about 150 dollars and found out she is having a boy. Reviewed the blood work that we did was all within normal limits. Will request the nuchal translucency ultrasound. Given that she did not get to go for the screening tests for Downs and trisomy 18 I am ordering the quad screen be done in about 3 weeks and we can see her then so the paperwork can be filled out appropriately at that visit. She does not have any questions and she knows what to do if she has any emergency. She is said her last labor went very well and she does not have any concerns she is trying to eat really well she has been enjoying [employer] asparagus from the [place] in [place]. Visit Date: 10/15/22 Last Updated by: Patrica Albarado Warner Susan is here for nurse intake visit. She is a 22 yo with LMP 07/28/22 (certain) and HUSSAIN 05/04/23 with GA today 11w2d. Pt BMI is 28.1. Although this was unplanned Susan and her boyfriend are happy. Susan is taking PNV. She was having issue with nausea but that has resolved now. Pt does report occasional dizziness and was advised to make sure she does not skip meals, keep snacks with her and to stand slowly if she has been sitting. Pt was also advised to drink 8-10 glasses of water per day. Pt reports dizziness resolves on its own. NT US has been scheduled for 10/23/22 at [facility] and pt has also scheduled OB PE 11/08/22. Pt declined the folder as she still has the one given to her with last . We reviewed danger signs, mason liner MD 16/12 and how to reach MD after hours, weekends and holidays. Pt is aware she will deliver again at [facility]. FH of diabetes and early glucose was added to labs. Pt given instructions to stop sugar at 2000 night before and have breakfast like eggs (no sugar) morning of test. Pt's questions were answered and she verbalizes understanding and agrees with plan. Results AMB Urinalysis, Automated UA Leukoctes 2 Freddie/uL Last Edit by Siri Schaefer [facility] on 12/26/22 15:23 UA Nitrite Negative Last Edit by Siri Schaefer [facility] on 12/26/22 15:23 UA Urobilinogen 0 mg/dL Last Edit by Siri Schaefer [facility] on 12/26/22 15:2 3 UA Protein 0.5 mg/dL Last Edit by Siri Schaefer [facility] on 12/26/22 15:23 UA pH 6.0 Last Edit by Siri Schaefer [facility] on 12/26/22 15:23 UA Blood 0.5 Milo/uL Last Edit by Siri Schaefer [facility] on 12/26/22 15:23 UA Specific [place] 1.025 Last Edit by Siri Schaefer [facility] on 12/26/22 15:23 UA Ketone Negative Last Edit by Siri Schaefer [facility] on 12/26/22 15:23 UA Bilirubin 0 mg/dL Last Edit by Siri Schaefer [facility] on 12/26/22 15:23 UA Glucose 0 mg/dL Last Edit by Siri Schaefer [facility] on 12/26/22 15:23 Results Reviewed Results Reviewed: Laboratory Last Values Urine pH (Auto) 6.0 12/26/22 15:22 Specific [place] (Auto) 1.025 12/26/22 15:22 Urine Protein (Auto) 0.5 mg/dL 12/26/22 15:22 Glucose (UA)(Auto) 0 mg/dL 12/26/22 15:22 Urine Ketones (Auto) Negative 12/26/22 15:22 Urine Blood (Auto) 0.5 Milo/uL 12/26/22 15:22 Urine Nitrite (Auto) Negative 12/26/22 15:22 Urine Bilirubin (Auto) 0 mg/dL 12/26/22 15:22 Urine Urobilinogen (Auto) 0 mg/dL 12/26/22 15:22 Leukocyte Esterase (Auto) 2 Freddie/uL 12/26/22 15:22 Assessment & Plan Assessment & Plan (1) Supervision of normal in second trimester: Code(s): Z34.92 - Encounter for supervision of normal , unspecified, second trimester Category: Medical Orders: Orders AMB Urinalysis Automated Today Z34.92 - Encounter for supervision of normal , unspecified, second trimester Coding Level of Care Code [place] Diagnoses Supervision of normal in second trimester Z34.92
[2022-12-26 15:13] VITALS: BP 104/56; BMI 28.8
== END 2022-12-26 15:53 | disposition home or self-care (01) ==
LOC: HO.HWS 15:09
PROVIDERS: PCP Internal Medicine; Visit Provider Advanced Practice Midwife
DX: Z34.92 Encounter for supervision of normal pregnancy, unspecified, second trimester (principal)
CPT/HCPCS: 25942

== ENCOUNTER → 2022-12-26 15:08 | Outpatient (BNVA) | payer OTHER, SELFPAY | PROVIDERS: PCP Internal Medicine; Visit Provider Advanced Practice Midwife | DX: Z34.82 Encounter for supervision of other normal pregnancy, second trimester (principal); Z3A.21 21 weeks gestation of pregnancy | CPT/HCPCS: 81003; 99212 ==

== ENCOUNTER 2023-01-23 09:08 | Outpatient (AMB) | payer OTHER, SELFPAY ==
--- NOTE | 2023-01-23 09:17 | A.OFFVISPN_ITS ---
Intake Vital Signs 01/23/23 09:21 Height 5 ft 4 in Weight 167 lb 8.821 oz BMI 28.8 BP 110/68 Intake Visit Reasons: JOSEFA Intake Note: The patient agreed to use of a medical record transcriber during this encounter. Scribed for MARTINA Swain by Rafia Silver medical record transcriber, on 01/23/2023 at 9:24am EST. Light [employer] Train Operator Required: No Information Interpreted: non-clinical & clinical Accompanied by: Self / Same As Patient Allergies No Known Allergies Allergy (Verified 01/23/23 09:22) Patient : Yes PFSH Medical History No significant past medical history Overweight (BMI 25.0-29.9) Surgical History No significant past surgical history Family History Maternal Grandmother Breast cancer Diabetes mellitus Maternal Aunt Diabetes mellitus Social History Household Members: Significant Other and Children Both parents involved: Yes Caregiver staying overnight: No Housing: Condominium Are you a primary rn home care to a significant other at home: No Do you presently have visiting nurse or other home services: No 75 years or older and lives alone: No Alcohol intake: never Patient Tobacco Use Status: Never used Tobacco Agree to transfusion: Yes service: No Current occupational status: employed 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 Date GA/Weeks Outcome Route Wt Inf Gender Labor Tarah Anesthesia Location Provider Complicate 01/05/21 5 spontaneous 02/17/23 40 live - full term 8 lb Male epidural [facility] none Visit HUSSAIN Calculator Estimated Delivery Date Method Current WG Current Estimate 05/04/23 LMP (Certain) 25w 4d Other Estimates 05/01/23 Ultrasound #1 26w 0d 05/01/23 Ultrasound #2 26w 0d Expected Delivery Route/Plan Specific Issues/Plans G3 ?P1 ? EDC: 05/01/23 ?by LMP c/w US? ? ?Blood type: B pos Problem List: 1. FH DM 2. closely spaced , conceived within 6months of delivery 3. Varicella non immune 4. Rubella non immune Testing: Panorama/and or First Tri screen: ? ?risk NT scan: nl Quad screen: neg FAS: nl scan Glucose: early ? 28 wk glucose: ? CBC 1st Tri: ? 28 wk. 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-?-?-?-?-?-?-?-?- 12/26/22 -?-?-?-?-?-?-?-?-?-?-?-?- 21w 4d 168 lb (+18 lb) 21 150 104/56 168 l b -?-?-?-?-?-?-?-?-?-?-?-?- 01/23/23 -?-?-?-?-?-?-?-?-?-?-?-?- 25w 4d 167 lb 8.821 oz (+17 lb 8.821 oz) 26 140 active 110/68 167 lb 8.821 oz -?-?-?-?-?-?-?-?-?-?-?-?- Notes Visit Date: 01/23/23 Last Updated by: Rafia Silver Note author: Richa Nguyen CNM/Rafia Silver medical record transcriber 25.4 wk JOSEFA. Feeling well. Taking PNV. Hydrating well and good appetite Good FM, no LOF, VB or abd pain. She voices no concerns or complaints. Reports sciatica pain has improved. Discussed: PTL - LOF, VB, abd pain. Advised to eat small frequent meals, hydrate well with water and stay cool. PEC - headaches: not resolved with 2 regular strength Tylenol doses, visual disturbances warnings and when to call for further evaluation. Reviewed when to call for any VB, LOF, contractions, Kick counts reviewed and when to call for any decreased FM. Encouraged patient to sign up for patient portal. Discussed to call the service here for any emergencies/deliveries to be directed to [facility]. Offered to change practices to [facility] and meet providers sooner, she prefers to remain here for PN care. RTO 4wks. Visit Date: 12/26/22 Last Updated by: Richa Nguyen CNM Note author: Richa Nguyen CNM/Rafia Silver medical record transcriber 21. 4 wk JOSEFA. Feeling well. Taking PNV. Hydrating well and good appetite Good FM, no LOF, VB or abd pain. C/o right sided sciatica. Discussed: PTL - LOF, VB, abd pain . Advised stretching, exercises, heating pad and PT for sciatica if desired, advised to message if wanting a referral Advised to eat small frequent meals and stay cool and hydrated. PEC - headaches: not resolved with 2 regular strength Tylenol doses, visual disturbances warnings and when to call for further evaluation. Reviewed when to call for any VB, LOF, contractions, Kick counts reviewed and when to call for any decreased FM. Labs reviewed, informed pp vaccinations, iron info. Discussed to call the service here for any emergencies/deliveries to be directed to [facility]. RTO in 4 weeks. Visit Date: 11/28/22 Last Updated by: Prabha Muhammad CNM Patient is here at 17 weeks 4 days for her visit. Her nuchal translucency ultrasound was done at [facility] but she did not go for the lab work as discussed at the previous visit so she today we will do the [place] AFP quad screen to screen for Down syndrome and open neural tube defects. She has her anatomy survey set up for 2 weeks from now at [facility]. She is eating well doing well appropriate weight gain doing well with her baby at home and working at the [employer] in [place]. She is not having any issues or worries or concerns at all. Continue excellent self-care and we will see her in 4 weeks and review any of the above testing as appropriate. Visit Date: 11/08/22 Last Updated by: Prabha Muhammad CNM Patient is here for her new OB physical visit. 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 She has her mother here at the visit with her 8-month-old who was also doing very well. She had her nuchal translucency ultrasound at [facility] but says they did not tell her to go get any blood work after on her own though she went and she had the ultrasound to find out the gender and did a blood test for about 150 dollars and found out she is having a boy. Reviewed the blood work that we did was all within normal limits. Will request the nuchal translucency ultrasound. Given that she did not get to go for the screening tests for Downs and trisomy 18 I am ordering the quad screen be done in about 3 weeks and we can see her then so the paperwork can be filled out appropriately at that visit. She does not have any questions and she knows what to do if she has any emergency. She is said her last labor went very well and she does not have any concerns she is trying to eat really well she has been enjoying [employer] asparagus from the [place] festival in [place]. Visit Date: 10/15/22 Last Updated by: Patrica Hylton Susan is here for nurse intake visit. She is a 22 yo with LMP 07/28/22 (certain) and HUSSAIN 05/04/23 with GA today 11w2d. Pt BMI is 28.1. Although this was unplanned Susan and her boyfriend are happy. Susan is taking PNV. She was having issue with nausea but that has resolved now. Pt does report occasional dizziness and was advised to make sure she does not skip meals, keep snacks with her and to stand slowly if she has been sitting. Pt was also advised to drink 8-10 glasses of water per day. Pt reports dizziness resolves on its own. NT US has been scheduled for 10/23/22 at [facility] and pt has also scheduled OB PE 11/08/22. Pt declined the folder as she still has the one given to her with last . We reviewed danger signs, intervention specialist MD 16/12 and how to reach MD after hours, weekends and holidays. Pt is aware she will deliver again at [facility]. FH of diabetes and early glucose was added to labs. Pt given instructions to stop sugar at 2000 night before and have breakfast like eggs (no sugar) morning of test. Pt's questions were answered and she verbalizes understanding and agrees with plan. Assessment & Plan Assessment & Plan (1) Supervision of normal in second trimester: Code(s): Z34.92 - Encounter for supervision of normal , unspecified, second trimester Category: Medical Coding Level of Care Code [place] Diagnoses Supervision of normal in second trimester Z34.92
[2023-01-23 09:21] VITALS: BP 110/68; BMI 28.8
== END 2023-01-23 09:32 | disposition home or self-care (01) ==
LOC: HO.HWSW 09:08
PROVIDERS: PCP Internal Medicine; Visit Provider Advanced Practice Midwife
DX: Z34.92 Encounter for supervision of normal pregnancy, unspecified, second trimester (principal)
CPT/HCPCS: 25942

== ENCOUNTER → 2023-01-23 09:08 | Outpatient (BNVA) | payer OTHER, SELFPAY | PROVIDERS: PCP Internal Medicine; Visit Provider Advanced Practice Midwife | DX: Z34.92 Encounter for supervision of normal pregnancy, unspecified, second trimester (principal) | CPT/HCPCS: 99212 ==

== ENCOUNTER 2023-02-20 12:52 | Outpatient (AMB) | payer OTHER, SELFPAY ==
--- NOTE | 2023-02-20 13:10 | A.OFFVISPN_ITS ---
Intake Vital Signs 02/20/23 13:17 Height 5 ft 4 in Weight 173 lb BMI 29.7 BP 100/64 Intake Visit Reasons: JOSEFA Intake Note: EPDS 1 The patient agreed to use of a medical dir during this encounter. Scribed for MARTINA Swain by Rafia Silver medical dir, on 02/20/2023 at 1:23 am EST. Allergies No Known Allergies Allergy (Verified 02/20/23 13:10) Patient : Yes PFSH Medical History No significant past medical history Overweight (BMI 25.0-29.9) Surgical History No significant past surgical history Family History Maternal Grandmother Breast cancer Diabetes mellitus Maternal Aunt Diabetes mellitus Social History Household Members: Significant Other and Children Both parents involved: Yes Caregiver staying overnight: No Housing: Condominium Are you a primary lawn care technician to a significant other at home: No Do you presently have visiting nurse or other home services: No 75 years or older and lives alone: No Alcohol intake: never Patient Tobacco Use Status: Never used Tobacco Agree to transfusion: Yes service: No Current occupational status: employed 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 Date GA/Weeks Outcome Route Wt Inf Gender Labor Tarah Anesthesia Location Provider Complicate 01/05/21 5 spontaneous 02/17/23 40 live - full term 8 lb Male epidural [facility] none Questionnaire Riverdale Depression Riverdale Depression Scale I have been able to laugh and see the funny side of things: As much as I always could I have looked forward with enjoyment to things: As much as I ever did I have blamed myself unnecessarily when things went wrong: No, never I have been anxious or worried for no reason: No, not at all I have felt scared of panicky for no very good reason at all: No, not at all Things have been getting on top of me: No, most of the time I have coped quite well I have been so unhappy that I have had difficulty sleeping: No, not at all I have felt sad or miserable: No, not at all I have been so unhappy that I have been crying: No, never The thought of harming myself has occurred to me: Never 1 Visit HUSSAIN Calculator Estimated Delivery Date Method Current WG Current Estimate 05/04/23 LMP (Certain) 29w 4d Other Estimates 05/01/23 Ultrasound #1 30w 0d 05/01/23 Ultrasound #2 30w 0d Expected Delivery Route/Plan Specific Issues/Plans G3 ?P1 ? EDC: 05/01/23 ?by LMP c/w US? ? ?Blood type: B pos Problem List: 1. FH DM 2. closely spaced , conceived within 6months of delivery 3. Varicella non immune 4. Rubella non immune Testing: Panorama/and or First Tri screen: ? ?risk NT scan: nl Quad screen: neg FAS: nl scan Glucose: early ? 28 wk glucose: ? CBC 1st Tri: ? 28 wk. 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-?-?-?-?-?-?-?-?-?-?-?- 12/26/22 -?-?-?-?-?-?-?-?-?-?-?-?- 21w 4d 168 lb (+18 lb) 21 150 104/56 168 l b -?-?-?-?-?-?-?-?-?-?-?-?- 01/23/23 -?-?-?-?-?-?-?-?-?-?-?-?- 25w 4d 167 lb 8.821 oz (+17 lb 8.821 oz) 26 140 active 110/68 167 lb 8.821 oz -?-?-?-?-?-?-?-?-?-?-?-?- 02/20/23 -?-?-?-?-?-?-?-?-?-?-?-?- 29w 4d 173 lb (+23 lb) 30 150 active 100/64 173 lb -?-?-?-?-?-?-?-?-?-?-?-?- Notes Visit Date: 02/20/23 Last Updated by: Richa Nguyen CNM Note author: Richa Nguyen CNM/Rafia Nadeem medical dir 29.4 wk JOSEFA. Feeling well. Taking PNV. Hydrating well and good appetite Good FM, no LOF, VB or abd pain. She has no questions or concerns. Discussed: PTL - LOF, VB, abd pain. Flu vaccine and TDaP information given, agree's to have done today. 28 wk labs ordered, instructions reviewed for glucose testing. Advised to complete in the next few days. Counseled re: flu vaccine, will be available in the office soon. PEC - headaches: not resolved with 2 regular strength Tylenol doses, visual disturbances warnings and when to call for further evaluation. Reviewed when to call for any VB, LOF, contractions, Kick counts reviewed and when to call for any decreased FM. Discussed to call the service here for any emergencies/deliveries to be directed to [facility]. All of her questions and concerns were addressed to the best of my ability and shared decision making. She is agreeable to plan of care. RTO 2wks. Visit Date: 01/23/23 Last Updated by: Rafia Silver Note author: Richa Nguyen CNM/Rafia Silver medical dir 25.4 wk JOSEFA. Feeling well. Taking PNV. Hydrating well and good appetite Good FM, no LOF, VB or abd pain. She voices no concerns or complaints. Reports sciatica pain has improved. Discussed: PTL - LOF, VB, abd pain. Advised to eat small frequent meals, hydrate well with water and stay cool. PEC - headaches: not resolved with 2 regular strength Tylenol doses, visual disturbances warnings and when to call for further evaluation. Reviewed when to call for any VB, LOF, contractions, Kick counts reviewed and when to call for any decreased FM. Encouraged patient to sign up for patient portal. Discussed to call the service here for any emergencies/deliveries to be directed to [facility]. Offered to change practices to [facility] and meet providers sooner, she prefers to remain here for PN care. RTO 4wks. Visit Date: 12/26/22 Last Updated by: Richa Nguyen CNM Note author: Richa Nguyen CNM/Rafia Silver medical dir 21. 4 wk JOSEFA. Feeling well. Taking PNV. Hydrating well and good appetite Good FM, no LOF, VB or abd pain. C/o right sided sciatica. Discussed: PTL - LOF, VB, abd pain . Advised stretching, exercises, heating pad and PT for sciatica if desired, advised to message if wanting a referral Advised to eat small frequent meals and stay cool and hydrated. PEC - headaches: not resolved with 2 regular strength Tylenol doses, visual disturbances warnings and when to call for further evaluation. Reviewed when to call for any VB, LOF, contractions, Kick counts reviewed and when to call for any decreased FM. Labs reviewed, informed pp vaccinations, iron info. Discussed to call the service here for any emergencies/deliveries to be directed to [facility]. RTO in 4 weeks. Visit Date: 11/28/22 Last Updated by: Prabha Muhammad CNM Patient is here at 17 weeks 4 days for her visit. Her nuchal translucency ultrasound was done at [facility] but she did not go for the lab work as discussed at the previous visit so she today we will do the ND AFP quad screen to screen for Down syndrome and open neural tube defects. She has her anatomy survey set up for 2 weeks from now at [facility]. She is eating well doing well appropriate weight gain doing well with her baby at home and working at the [employer] in [place]. She is not having any issues or worries or concerns at all. Continue excellent self-care and we will see her in 4 weeks a nd review any of the above testing as appropriate. Visit Date: 11/08/22 Last Updated by: Prabha Muhammad CNM Patient is here for her new OB physical visit. 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 She has her mother here at the visit with her 8-month-old who was also doing very well. She had her nuchal translucency ultrasound at [facility] but says they did not tell her to go get any blood work after on her own though she went and she had the ultrasound to find out the gender and did a blood test for about 150 dollars and found out she is having a boy. Reviewed the blood work that we did was all within normal limits. Will request the nuchal translucency ultrasound. Given that she did not get to go for the screening tests for Downs and trisomy 18 I am ordering the quad screen be done in about 3 weeks and we can see her then so the paperwork can be filled out appropriately at that visit. She does not have any questions and she knows what to do if she has any emergency. She is said her last labor went very well and she does not have any concerns she is trying to eat really well she has been enjoying [employer] asparagus from the [employer] [place] in [place]. Visit Date: 10/15/22 Last Updated by: Patrica Rousekatrina Davis is here for nurse intake visit. She is a 22 yo with LMP 07/28/22 (certain) and HUSSAIN 05/04/23 with GA today 11w2d. Pt BMI is 28.1. Although this was unplanned Susan and her boyfriend are happy. Susan is taking PNV. She was having issue with nausea but that has resolved now. Pt does report occasional dizziness and was advised to make sure she does not skip meals, keep snacks with her and to stand slowly if she has been sitting. Pt was also advised to drink 8-10 glasses of water per day. Pt reports dizziness resolves on its own. NT US has been scheduled for 10/23/22 at [facility] and pt has also scheduled OB PE 11/08/22. Pt declined the folder as she still has the one given to her with last . We reviewed danger signs, screen and cyclone repairer MD 16/12 and how to reach MD after hours, weekends and holidays. Pt is aware she will deliver again at [facility]. FH of diabetes and early glucose was added to labs. Pt given instructions to stop sugar at 2000 night before and have breakfast like eggs (no sugar) morning of test. Pt's questions were answered and she verbalizes understanding and agrees with plan. Results AMB Urinalysis, Automated UA Leukoctes 2 Freddie/uL Last Edit by MELISSA Carrillo on 02/20/23 13:18 UA Nitrite Negative Last Edit by MELISSA Carrillo on 02/20/23 13:18 UA Urobilinogen 0 mg/dL Last Edit by MELISSA Carrillo on 02/20/23 13:1 8 UA Protein 0 mg/dL Last Edit by MELISSA Carrillo on 02/20/23 13:18 UA pH 7.0 Last Edit by Siri Schaefer Hira on 02/20/23 13:18 UA Blood 0 Milo/uL Last Edit by Siri Schaefer A on 02/20/23 13:18 UA Specific [place] 1.015 Last Edit by Siri Schaefer A on 02/20/23 13:18 UA Ketone Negative Last Edit by [facility] on 02/20/23 13:18 UA Bilirubin 0 mg/dL Last Edit by Siri [facility] on 02/20/23 13:18 UA Glucose 0 mg/dL Last Edit by Siri [facility] on 02/20/23 13:18 Immunizations Boostrix Tdap 2.5 Lf unit-8 mcg-5 Lf/0.5 mL intramuscular syringe Performing Provider: Richa Nguyen CNM Performing Location: [facility] Administered by: Bridgette Tay LPN on 02/20/23 13:36 Dose Route Admin Location Dispensed Lot Number Expiration Date [facility] C[employer] Insurance Claims Adjuster 0.5 mL IM Left Deltoid 0.5 mL [id number] 04/19/24 [id number] [employer]kit VIS Given Date VIS Provided VIS Publication Date 02/20/23 Single Vaccine 20 Eligibility Eligibility Date Funding Source Not [facility] Eligible 02/20/23 Private Results Reviewed Results Reviewed: Laboratory Last Values Urine pH (Auto) 7.0 02/20/23 13:17 Specific [place] (Auto) 1.015 02/20/23 13:17 Urine Protein (Auto) 0 mg/dL 02/20/23 13:17 Glucose (UA)(Auto) 0 mg/dL 02/20/23 13:17 Urine Ketones (Auto) Negative 02/20/23 13:17 Urine Blood (Auto) 0 Milo/uL 02/20/23 13:17 Urine Nitrite (Auto) Negative 02/20/23 13:17 Urine Bilirubin (Auto) 0 mg/dL 02/20/23 13:17 Urine Urobilinogen (Auto) 0 mg/dL 02/20/23 13:17 Leukocyte Esterase (Auto) 2 Freddie/uL 02/20/23 13:17 Assessment & Plan Assessment & Plan (1) Encounter for supervision of normal in third trimester: Code(s): Z34.93 - Encounter for supervision of normal , unspecified, third trimester Category: Medical Orders: Orders Syphilis Screen Today Z20.2 - Contact with and (suspected) exposure to infections with a predominantly sexual mode of transmission, Z34.93 - Encounter for supervision of normal , unspecified, third trimester Complete Blood Count no Diff Today Z34.93 - Encounter for supervision of normal , unspecified, third trimester TDaP Immunization Today Z34.93 - Encounter for supervision of normal , unspecified, third trimester AMB Urinalysis Automated Today Z34.93 - Encounter for supervision of normal , unspecified, third trimester Glucose 1 Hour PP 50gm Dose Today Z34.93 - Encounter for supervision of normal , unspecified, third trimester Coding Level of Care Code [place] Diagnoses Encounter for supervision of normal in third trimester Z34.93
[2023-02-20 13:17] VITALS: BP 100/64; BMI 29.7
== END 2023-02-20 13:35 | disposition home or self-care (01) ==
PROVIDERS: PCP Internal Medicine; Visit Provider Advanced Practice Midwife
DX: Z34.93 Encounter for supervision of normal pregnancy, unspecified, third trimester (principal)
CPT/HCPCS: 25942

== ENCOUNTER → 2023-02-20 12:52 | Outpatient (BNVA) | payer OTHER, SELFPAY | PROVIDERS: PCP Internal Medicine; Visit Provider Advanced Practice Midwife | DX: Z34.93 Encounter for supervision of normal pregnancy, unspecified, third trimester (principal); Z23 Encounter for immunization | CPT/HCPCS: 81003; 90471; 90715; 99212 ==

== ENCOUNTER 2023-03-05 12:00 | Outpatient (REF) | payer OTHER, SELFPAY ==
[2023-03-05 14:37] LABS: Hematocrit 35.7 % (37.0-47.0); Mean Corpuscular HGB Conc 30.8 g/dl (31.0-35.0); Mean Corpuscular Hemoglobin 25.1 pg (27.0-33.0); Mean Corpuscular Volume 81.3 fL (80.0-98.0); Mean Platelet Volume 12.8 fL (9.4-12.3); Platelet Count 199 X10*3/uL (160-400); Red Blood Count 4.39 X10*6/uL (4.20-5.50); Red Cell Distribution Width 13.4 % (11.0-16.0); White Blood Count 10.4 X10*3/uL (4.8-10.8)
[2023-03-05 15:04] LABS: Glucose 1 Hour PP 50gm Dose 88 mg/dL (60-140)
[2023-03-06 04:09] LABS: Syphilis Screen Nonreactive (Nonreactive)
== END 2023-03-05 12:01 | disposition home or self-care (01) ==
LOC: HO.LAB 12:00
PROVIDERS: Visit Provider Advanced Practice Midwife
DX: Z34.93 Encounter for supervision of normal pregnancy, unspecified, third trimester (principal)
CPT/HCPCS: 36415; 82950; 85027; 86780

== ENCOUNTER 2023-03-07 14:15 | Outpatient (AMB) | payer OTHER, SELFPAY ==
--- NOTE | 2023-03-07 14:19 | A.OFFVISPN_ITS ---
Intake Vital Signs 03/07/23 14:23 Height 5 ft 4 in Weight 173 lb BMI 29.7 BP 114/60 Intake Visit Reasons: JOSEFA Intake Note: The patient agreed to use of a durable medical equipment technician during this encounter. Scribed for MARTINA Swain by Rafia Silver durable medical equipment technician, on 03/07/2023 at 2:[address] Bailiff Required: No Information Interpreted: non-clinical & clinical Accompanied by: Self / Same As Patient Allergies No Known Allergies Allergy (Verified 03/07/23 14:24) Patient : Yes PFSH Medical History No significant past medical history Overweight (BMI 25.0-29.9) Surgical History No significant past surgical history Family History Maternal Grandmother Breast cancer Diabetes mellitus Maternal Aunt Diabetes mellitus Social History Household Members: Significant Other and Children Both parents involved: Yes Caregiver staying overnight: No Housing: Condominium Are you a primary career technical counselor to a significant other at home: No Do you presently have visiting nurse or other home services: No 75 years or older and lives alone: No Alcohol intake: never Patient Tobacco Use Status: Never used Tobacco Agree to transfusion: Yes service: No Current occupational status: employed 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 Date GA/Weeks Outcome Route Wt Inf Gender Labor Tarah Anesthesia Location Provider Complicate 01/05/21 5 spontaneous 02/17/23 40 live - full term 8 lb Male epidural [facility] none Visit HUSSAIN Calculator Estimated Delivery Date Method Current WG Current Estimate 05/04/23 LMP (Certain) 31w 5d Other Estimates 05/01/23 Ultrasound #1 32w 1d 05/01/23 Ultrasound #2 32w 1d Expected Delivery Route/Plan Specific Issues/Plans G3 ?P1 ? EDC: 05/01/23 ?by LMP c/w US? ? ?Blood type: B pos Problem List: 1. FH DM 2. closely spaced , conceived within 6months of delivery 3. Varicella non immune 4. Rubella non immune Testing: Panorama/and or First Tri screen: ? ?risk NT scan: nl Quad screen: neg FAS: nl scan Glucose: early ?98 ?28 wk glucose: ?88 CBC 1st Tri: ? 28 wk. 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 Labor, and Concerns: Labor support: Michael Plan: Epidural Infant Feeding Plans: breast feeding control: OB Visit Log Initial Weight: 150 lb Date -?--?-?-?-?-?-?-?-?-?-?-?- EGA Weight Gest Week Fundal Ht Present FHR move Efface % Edema BP PrePreg We Weight GTT -?-?-?-?-?-?-?-?-?-?-?-?- Glucose LV Protein Blood Type 10/15/22 -?-?-?-?-?-?-?-?-?-?-?-?- 11w 2d 164 lb (+14 lb) 164 lb -?-?-?-?-?-?-?-?-?-?-?-?- 11/08/22 -?-?-?-?-?-?-?-?-?-?-?-?- 14w 5d 162 lb (+12 lb) 14 150 150 116/58 1 62 lb -?-?-?-?-?-?-?-?-?-?-?-?- 11/28/22 -?-?-?-?-?-?-?-?-?-?-?-?- 17w 4d 165 lb (+15 lb) 17 140 118/78 165 l b -?-?-?-?-?-?-?-?-?-?-?-?- 12/26/22 -?-?-?-?-?-?-?-?-?-?-?-?- 21w 4d 168 lb (+18 lb) 21 150 104/56 168 l b -?-?-?-?-?-?--?-?-?-?-?-?- 01/23/23 -?-?-?-?-?-?-?-?-?-?-?-?- 25w 4d 167 lb 8.821 oz (+17 lb 8.821 oz) 26 140 active 110/68 167 lb 8.821 oz -?-?-?-?-?-?-?-?-?-?-?-?- 02/20/23 -?-?-?-?-?-?-?-?-?-?-?-?- 29w 4d 173 lb (+23 lb) 30 150 active 100/64 173 lb -?-?-?-?-?-?-?-?-?-?-?-?- 03/07/23 -?-?-?-?-?-?-?-?-?-?-?-?- 31w 5d 173 lb (+23 lb) 32 150 active 114/60 173 lb -?-?-?-?-?-?-?-?-?-?-?-?- Notes Visit Date: 03/07/23 Last Updated by: Richa Nguyen CNM Note author: Richa Nguyen CNM/Rafia [facility]'s Health Centerdurable medical equipment technician 31.5 wk JOSEFA. Feeling well. Taking PNV. Hydrating well and good appetite Good FM, no LOF, VB or abd pain. She has no questions and concerns. Reports receiving iron Rx and is taking it. Flu vaccine recommended. Discussed: PTL - LOF, VB, abd pain. 28wk labs reviewed. Future GBS testing. PEC - headaches: not resolved with 2 regular strength Tylenol doses, visual disturbances warnings and when to call for further evaluation. Reviewed when to call for any VB, LOF, contractions, Kick counts reviewed and when to call for any decreased FM. Encouraged patient to sign up for patient portal. Discussed to call the service here for any emergencies/deliveries to be directed to [facility]. All of her questions and concerns were addressed to the best of my ability and shared decision making. She is agreeable to plan of care. RTO 2wks. Visit Date: 02/20/23 Last Updated by: Richa Nguyen CNM Note author: Richa Nguyen CNM/Rafia Silver durable medical equipment technician 29.4 wk JOSEFA. Feeling well. Taking PNV. Hydrating well and good appetite Good FM, no LOF, VB or abd pain. She has no questions or concerns. Discussed: PTL - LOF, VB, abd pain. Flu vaccine and TDaP information given, agree's to have done today. 28 wk labs ordered, instructions reviewed for glucose testing. Advised to complete in the next few days. Counseled re: flu vaccine, will be available in the office soon. PEC - headaches: not resolved with 2 regular strength Tylenol doses, visual disturbances warnings and when to call for further evaluation. Reviewed when to call for any VB, LOF, contractions, Kick counts reviewed and when to call for any decreased FM. Discussed to call the service here for any emergencies/deliveries to be directed to [facility]. All of her questions and concerns were addressed to the best of my ability and shared decision making. She is agreeable to plan of care. RTO 2wks. Visit Date: 01/23/23 Last Updated by: Rafia Silver Note author: Richa Nguyen CNM/Rafia Silver durable medical equipment technician 25.4 wk JOSEFA. Feeling well. Taking PNV. Hydrating well and good appetite Good FM, no LOF, VB or abd pain. She voices no concerns or complaints. Reports sciatica pain has improved. Discussed: PTL - LOF, VB, abd pain. Advised to eat small frequent meals, hydrate well with water and stay cool. PEC - headaches: not resolved with 2 regular strength Tylenol doses, visual disturbances warnings and when to call for further evaluation. Reviewed when to call for any VB, LOF, contractions, Kick counts reviewed and when to call for any decreased FM. Encouraged patient to sign up for patient portal. Discussed to call the service here for any emergencies/deliveries to be directed to [facility]. Offered to change practices to [facility] and meet providers sooner, she prefers to remain here for PN care. RTO 4wks. Visit Date: 12/26/22 Last Updated by: Richa Nguyen CNM Note author: Richa Nguyen CNM/Rafia Silver durable medical equipment technician 21. 4 wk JOSEFA. Feeling well. Taking PNV. Hydrating well and good appetite Good FM, no LOF, VB or abd pain. C/o right sided sciatica. Discussed: PTL - LOF, VB, abd pain . Advised stretching, exercises, heating pad and PT for sciatica if desired, advised to message if wanting a referral Advised to eat small frequent meals and stay cool and hydrated. PEC - headaches: not resolved with 2 regular strength Tylenol doses, visual disturbances warnings and when to call for further evaluation. Reviewed when to call for any VB, LOF, contractions, Kick counts reviewed and when to call for any decreased FM. Labs reviewed, informed pp vaccinations, iron info. Discussed to call the service here for any emergencies/deliveries to be directed to [facility]. RTO in 4 weeks. Visit Date: 11/28/22 Last Updated by: Prabha Muhammad CNM Patient is here at 17 weeks 4 days for her visit. Her nuchal translucency ultrasound was done at [facility] but she did not go for the lab work as discussed at the previous visit so she today we will do the [place] AFP quad screen to screen for Down syndrome and open neural tube defects. She has her anatomy survey set up for 2 weeks from now at [facility]. She is eating well doing well appropriate weight gain doing well with her baby at home and working at the [employer] in [place]. She is not having any issues or worries or concerns at all. Continue excellent self-care and we will see her in 4 weeks and review any of the above testing as appropriate. Visit Date: 11/08/22 Last Updated by: Prabha Muhammad CNM Patient is here for her new OB physical visit. 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 She has her mother here at the visit with her 8-month-old who was also doing very well. She had her nuchal translucency ultrasound at [facility] but says they did not tell her to go get any blood work after on her own though she went and she had the ultrasound to find out the gender and did a blood test for about 150 dollars and found out she is having a boy. Reviewed the blood work that we did was all within normal limits. Will request the nuchal translucency ultrasound. Given that she did not get to go for the screening tests for Downs and trisomy 18 I am ordering the quad screen be done in about 3 weeks and we can see her then so the paperwork can be filled out appropriately at that visit. She does not have any questions and she knows what to do if she has any emergency. She is said her last labor went very well and she does not have any concerns she is trying to eat really well she has been enjoying [employer] from the [employer] festival in [place]. Visit Date: 10/15/22 Last Updated by: Patrica Albarado Warner Davis is here for nurse intake visit. She is a 22 yo with LMP 07/28/22 (certain) and HUSSAIN 05/04/23 with GA today 11w2d. Pt BMI is 28.1. Although this was unplanned Susan and her boyfriend are happy. Susan is taking PNV. She was having issue with nausea but that has resolved now. Pt does report occasional dizziness and was advised to make sure she does not skip meals, keep snacks with her and to stand slowly if she has been sitting. Pt was also advised to drink 8-10 glasses of water per day. Pt reports dizziness resolves on its own. NT US has been scheduled for 10/23/22 at [facility] and pt has also scheduled OB PE 11/08/22. Pt declined the folder as she still has the one given to her with last . We reviewed danger signs, front tender MD 16/12 and how to reach MD after hours, weekends and holidays. Pt is aware she will deliver again at [facility]. FH of diabetes and early glucose was added to labs. Pt given instructions to stop sugar at 2000 night before and have breakfast like eggs (no sugar) morning of test. Pt's questions were answered and she verbalizes understanding and agrees with plan. Results Reviewed Results Reviewed: Laboratory Tests 03/05/23 13:38 Hgb 11.0 L Hct 35.7 L Assessment & Plan Assessment & Plan (1) Encounter for supervision of normal in third trimester: Code(s): Z34.93 - Encounter for supervision of normal , unspecified, third trimester Category: Medical Coding Level of Care Code [place] Diagnoses Encounter for supervision of normal in third trimester Z34.93
[2023-03-07 14:23] VITALS: BP 114/60; BMI 29.7
== END 2023-03-07 14:44 | disposition home or self-care (01) ==
PROVIDERS: PCP Internal Medicine; Visit Provider Advanced Practice Midwife
DX: Z34.93 Encounter for supervision of normal pregnancy, unspecified, third trimester (principal)
CPT/HCPCS: 25942

== ENCOUNTER → 2023-03-07 14:15 | Outpatient (BNVA) | payer OTHER, SELFPAY | PROVIDERS: PCP Internal Medicine; Visit Provider Advanced Practice Midwife | DX: Z34.83 Encounter for supervision of other normal pregnancy, third trimester (principal); Z3A.31 31 weeks gestation of pregnancy | CPT/HCPCS: 99212 ==

== ENCOUNTER 2023-03-21 09:00 | Outpatient (AMB) | payer OTHER, SELFPAY ==
--- NOTE | 2023-03-21 09:22 | A.OFFVISPN_ITS ---
Intake Vital Signs 03/21/23 09:23 Height 5 ft 4 in Weight 172 lb BMI 29.5 BP 106/68 Intake Visit Reasons: JOSEFA Intake Note: The patient agreed to use of a electromedical equipment repairer during this encounter. Scribed for MARTINA Swain by Caterina Randall electromedical equipment repairer, on 03/20/2023 at 9:45 am EST Chip Frier Required: No Information Interpreted: non-clinical & clinical Accompanied by: Self / Same As Patient Allergies No Known Allergies Allergy (Verified 03/21/23 09:28) Patient : Yes PFSH Medical History Overweight (BMI 25.0-29.9) No significant past medical history Surgical History No significant past surgical history Family History Maternal Grandmother Breast cancer Diabetes mellitus Maternal Aunt Diabetes mellitus Social History Household Members: Significant Other and Children Both parents involved: Yes Caregiver staying overnight: No Housing: Condominium Are you a primary neonatal intensive care unit nurse to a significant other at home: No Do you presently have visiting nurse or other home services: No 75 years or older and lives alone: No Alcohol intake: never Patient Tobacco Use Status: Never used Tobacco Agree to transfusion: Yes service: No Current occupational status: employed 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 Date GA/Weeks Outcome Route Wt Inf Gender Labor Tarah Anesthesia Location Provider Complicate 01/05/21 5 spontaneous 02/17/23 40 live - full term 8 lb Male epidural [facility] none Visit HUSSAIN Calculator Estimated Delivery Date Method Current WG Current Estimate 05/04/23 LMP (Certain) 33w 5d Other Estimates 05/01/23 Ultrasound #1 34w 1d 12/07/23 Ultrasound #2 34w 1d Expected Delivery Route/Plan Specific Issues/Plans G3 ?P1 ? EDC: 05/01/23 ?by LMP c/w US? ? ?Blood type: B pos Problem List: 1. FH DM 2. closely spaced , conceived within 6months of delivery 3. Varicella non immune 4. Rubella non immune Testing: Panorama/and or First Tri screen: ? ?risk NT scan: nl Quad screen: neg FAS: nl scan Glucose: early ?98 ?28 wk glucose: ?88 CBC 1st Tri: ? 28 wk. 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-?-?-?-?-?-?-?-?-?-?-?- 12/26/22 -?-?-?-?-?-?-?-?-?-?-?-?- 21w 4d 168 lb (+18 lb) 21 150 104/56 168 l b -?-?-?-?-?-?-?-?-?-?-?-?- 01/23/23 -?-?-?-?-?-?-?-?-?-?-?-?- 25w 4d 167 lb 8.821 oz (+17 lb 8.821 oz) 26 140 active 110/68 167 lb 8.821 oz -?-?-?-?-?-?-?-?-?-?-?-?- 02/20/23 -?-?-?-?-?-?-?-?-?-?-?-?- 29w 4d 173 lb (+23 lb) 30 150 active 100/64 173 lb -?-?-?-?-?-?-?-?-?-?-?-?- 03/07/23 -?-?-?-?-?-?-?-?-?-?-?-?- 31w 5d 173 lb (+23 lb) 32 150 active 114/60 173 lb -?-?-?-?-?-?-?-?-?-?-?-?- 03/21/23 -?-?-?-?-?-?-?-?-?-?-?-?- 33w 5d 172 lb (+22 lb) 32 160 active 106/68 172 lb -?-?-?-?-?-?-?-?-?-?-?-?- Notes Visit Date: 03/21/23 Last Updated by: Richa Nguyen CNM Note author: Richa Nguyen CNM/Caterina Randall, electromedical equipment repairer 33.5 wk JOSEFA. Taking PNV. Good FM. Denies LOF, VB or abd pain. Doing well with no concerns. Good appetite and stays well hydrated. She is unsure of which BC she wants. She will think about it and discuss prior to delivery. Discussed: PTL s/s-LOF/ctx?s/VB, when to seek emergent care. Kick counts/FM and when to call the office for further eval. Encouraged a healthy well balanced diet. Hydrate well, 8-10 glasses of water daily. RTO 2 wks. Visit Date: 03/07/23 Last Updated by: Richa Nguyen CNM Note author: Richa Nguyen CNM/Rafia Silver electromedical equipment repairer 31.5 wk JOSEFA. Feeling well. Taking PNV. Hydrating well and good appetite Good FM, no LOF, VB or abd pain. She has no questions and concerns. Reports receiving iron Rx and is taking it. Flu vaccine recommended. Discussed: PTL - LOF, VB, abd pain. 28wk labs reviewed. Future GBS testing. PEC - headaches: not resolved with 2 regular strength Tylenol doses, visual disturbances warnings and when to call for further evaluation. Reviewed when to call for any VB, LOF, contractions, Kick counts reviewed and when to call for any decreased FM. Encouraged patient to sign up for patient portal. Discussed to call the service here for any emergencies/deliveries to be directed to [facility]. All of her questions and concerns were addressed to the best of my ability and shared decision making. She is agreeable to plan of care. RTO 2wks. Visit Date: 02/20/23 Last Updated by: Richa Nguyen CNM Note author: Richa Nguyen CNM/Rafia Silver electromedical equipment repairer 29.4 wk JOSEFA. Feeling well. Taking PNV. Hydrating well and good appetite Good FM, no LOF, VB or abd pain. She has no questions or concerns. Discussed: PTL - LOF, VB, abd pain. Flu vaccine and TDaP information given, agree's to have done today. 28 wk labs ordered, instructions reviewed for glucose testing. Advised to complete in the next few days. Counseled re: flu vaccine, will be available in the office soon. PEC - headaches: not resolved with 2 regular strength Tylenol doses, visual disturbances warnings and when to call for further evaluation. Reviewed when to call for any VB, LOF, contractions, Kick counts reviewed and when to call for any decreased FM. Discussed to call the service here for any emergencies/deliveries to be directed to [facility]. All of her questions and concerns were addressed to the best of my ability and shared decision making. She is agreeable to plan of care. RTO 2wks. Visit Date: 01/23/23 Last Updated by: Rafia Silver Note author: Richa Nguyen CNM/Rafia Silver electromedical equipment repairer 25.4 wk JOSEFA. Feeling well. Taking PNV. Hydrating well and good appetite Good FM, no LOF, VB or abd pain. She voices no concerns or complaints. Reports sciatica pain has improved. Discussed: PTL - LOF, VB, abd pain. Advised to eat small frequent meals, hydrate well with water and stay cool. PEC - headaches: not resolved with 2 regular strength Tylenol doses, visual disturbances warnings and when to call for further evaluation. Reviewed when to call for any VB, LOF, contractions, Kick counts reviewed and when to call for any decreased FM. Encouraged patient to sign up for patient portal. Discussed to call the service here for any emergencies/deliveries to be directed to [facility]. Offered to change practices to [facility] and meet providers sooner, she prefers to remain here for PN care. RTO 4wks. Visit Date: 12/26/22 Last Updated by: Richa Nguyen CNM Note author: Richa Nguyen CNM/Rafia Silver electromedical equipment repairer 21. 4 wk JOSEFA. Feeling well. Taking PNV. Hydrating well and good appetite Good FM, no LOF, VB or abd pain. C/o right sided sciatica. Discussed: PTL - LOF, VB, abd pain . Advised stretching, exercises, heating pad and PT for sciatica if desired, advised to message if wanting a referral Advised to eat small frequent meals and stay cool and hydrated. PEC - headaches: not resolved with 2 regular strength Tylenol doses, visual disturbances warnings and when to call for further evaluation. Reviewed when to call for any VB, LOF, contractions, Kick counts reviewed and when to call for any decreased FM. Labs reviewed, informed pp vaccinations, iron info. Discussed to call the service here for any emergencies/deliveries to be directed to [facility]. RTO in 4 weeks. Visit Date: 11/28/22 Last Updated by: Prabha Muhammad CNM Patient is here at 17 weeks 4 days for her visit. Her nuchal translucency ultrasound was done at [facility] but she did not go for the lab work as discussed at the previous visit so she today we will do the [place] AFP quad screen to screen for Down syndrome and open neural tube defects. She has her anatomy survey set up for 2 weeks from now at [facility]. She is eating well doing well appropriate weight gain doing well with her baby at home and working at the [employer] in [place]. She is not having any issues or worries or concerns at all. Continue excellent self-care and we will see her in 4 weeks and review any of the above testing as appropriate. Visit Date: 11/08/22 Last Updated by: Prabha Muhammad CNM Patient is here for her new OB physical visit. 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 She has her mother here at the visit with her 8-month-old who was also doing very well. She had her nuchal translucency ultrasound at [facility] but says they did not tell her to go get any blood work after on her own though she went and she had the ultrasound to find out the gender and did a blood test for about 150 dollars and found out she is having a boy. Reviewed the blood work that we did was all within normal limits. Will request the nuchal translucency ultrasound. Given that she did not get to go for the screening tests for Downs and trisomy 18 I am ordering the quad screen be done in about 3 weeks and we can see her then so the paperwork can be filled out appropriately at that visit. She does not have any questions and she knows what to do if she has any emergency. She is said her last labor went very well and she does not have any concerns she is trying to eat really well she has been enjoying [place] from the [employer] festival in [place]. Visit Date: 10/15/22 Last Updated by: Patrica Rousekatrina Davis is here for nurse intake visit. She is a 22 yo with LMP 07/28/22 (certain) and HUSSAIN 05/04/23 with GA today 11w2d. Pt BMI is 28.1. Although this was unplanned Susan and her boyfriend are happy. Susan is taking PNV. She was having issue with nausea but that has resolved now. Pt does report occasional dizziness and was advised to make sure she does not skip meals, keep snacks with her and to stand slowly if she has been sitting. Pt was also advised to drink 8-10 glasses of water per day. Pt reports dizziness resolves on its own. NT US has been scheduled for 10/23/22 at [facility] and pt has also scheduled OB PE 11/08/22. Pt declined the folder as she still has the one given to her with last . We reviewed danger signs, rehabilitation program manager MD 16/12 and how to reach MD after hours, weekends and holidays. Pt is aware she will deliver again at [facility]. FH of diabetes and early glucose was added to labs. Pt given instructions to stop sugar at 2000 night before and have breakfast like eggs (no sugar) morning of test. Pt's questions were answered and she verbalizes understanding and agrees with plan. Assessment & Plan Assessment & Plan (1) Encounter for supervision of normal in third trimester: Code(s): Z34.93 - Encounter for supervision of normal , unspecified, third trimester Category: Medical Coding Level of Care Code [place] Diagnoses Encounter for supervision of normal in third trimester Z34.93
[2023-03-21 09:23] VITALS: BP 106/68; BMI 29.5
== END 2023-03-21 09:50 | disposition home or self-care (01) ==
PROVIDERS: PCP Internal Medicine; Visit Provider Advanced Practice Midwife
DX: Z34.93 Encounter for supervision of normal pregnancy, unspecified, third trimester (principal)
CPT/HCPCS: 25942; 59426

== ENCOUNTER → 2023-03-21 09:00 | Outpatient (BNVA) | payer OTHER, SELFPAY | PROVIDERS: PCP Internal Medicine; Visit Provider Advanced Practice Midwife | DX: Z34.83 Encounter for supervision of other normal pregnancy, third trimester (principal); Z3A.33 33 weeks gestation of pregnancy | CPT/HCPCS: 99212 ==

== ENCOUNTER 2023-04-03 11:25 | Outpatient (AMB) | payer SELFPAY ==
--- NOTE | 2023-04-03 11:27 | A.OFFVISPN_ITS ---
Intake Vital Signs 04/03/23 11:28 Height 5 ft 4 in Weight 175 lb BMI 30.0 BP 94/58 L Intake Visit Reasons: JOSEFA Intake Note: Scribed for Richa Nguyen CNM by Caden Barboza medical billing and coding specialist, on 04/03/23 at , EST. Allergies No Known Allergies Allergy (Verified 04/03/23 11:28) Patient : Yes PFSH Medical History Overweight (BMI 25.0-29.9) No significant past medical history Surgical History No significant past surgical history Family History Maternal Grandmother Breast cancer Diabetes mellitus Maternal Aunt Diabetes mellitus Social History Household Members: Significant Other and Children Both parents involved: Yes Caregiver staying overnight: No Housing: [facility] Are you a primary housekeeper caregiver to a significant other at home: No Do you presently have visiting nurse or other home services: No 75 years or older and lives alone: No Alcohol intake: never Patient Tobacco Use Status: Never used Tobacco Agree to transfusion: Yes service: No Current occupational status: employed 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 Date GA/Weeks Outcome Route Wt Inf Gender Labor Tarah Anesthesia Location Provider Complicate 01/05/21 5 spontaneous 02/17/23 40 live - full term 8 lb Male epidural [facility] none Visit HUSSAIN Calculator Estimated Delivery Date Method Current WG Current Estimate 05/04/23 LMP (Certain) 35w 4d Other Estimates 05/01/23 Ultrasound #1 36w 0d 05/01/23 Ultrasound #2 36w 0d Expected Delivery Route/Plan Specific Issues/Plans G3 ?P1 ? EDC: 05/01/23 ?by LMP c/w US? ? ?Blood type: B pos Problem List: 1. FH DM 2. closely spaced , conceived within 6months of delivery 3. Varicella non immune 4. Rubella non immune Testing: Panorama/and or First Tri screen: ? ?risk NT scan: nl Quad screen: neg FAS: nl scan Glucose: early ?98 ?28 wk glucose: ?88 CBC 1st Tri: ? 28 wk. 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-?-?-?-?-?-?-?-?-?-?-?- 12/26/22 -?-?-?-?-?-?-?-?-?-?-?-?- 21w 4d 168 lb (+18 lb) 21 150 104/56 168 l b -?-?-?-?-?-?-?-?-?-?-?-?- 01/23/23 -?-?--?-?-?-?-?-?-?-?-?-?- 25w 4d 167 lb 8.821 oz (+17 lb 8.821 oz) 26 140 active 110/68 167 lb 8.821 oz -?-?-?-?-?-?-?-?-?-?-?-?- 02/20/23 -?-?-?-?-?-?-?-?-?-?-?-?- 29w 4d 173 lb (+23 lb) 30 150 active 100/64 173 lb -?-?-?-?-?-?-?-?-?-?-?-?- 03/07/23 -?-?-?-?-?-?-?-?-?-?-?-?- 31w 5d 173 lb (+23 lb) 32 150 active 114/60 173 lb -?-?-?-?-?-?-?-?-?-?-?-?- 03/21/23 -?-?-?-?-?-?-?-?-?-?-?-?- 33w 5d 172 lb (+22 lb) 32 160 active 106/68 172 lb -?-?-?-?-?-?-?-?-?-?-?-?- 04/03/23 -?-?-?-?-?-?-?-?-?-?-?-?- 35w 4d 175 lb (+25 lb) 34 150 94/58 175 lb -?-?-?-?-?-?-?-?-?-?-?-?- Notes Visit Date: 04/03/23 Last Updated by: Richa Nguyen CNM Note author: Richa Nguyen CNM/Professional Model: Caden Barboza. 35 wk. 4 days, JOSEFA. Taking PNV, Doing well with no concerns. Good appetite, stays well hydrated. Denies any LOF, VB, abd pain, or urinary symptoms. Good FM. She is interested in breast feeding. 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 She reports work-related stress as she was asked to get supplies from the another restaurant and she had to climb mounds of dirt to retrieve supplies, which stressed her out. She had some contraction and was seen in the hospital on 03/29/2023. The patient and her baby were evaluated and found to be normal. Reviewed: PTL s/s-LOF/Ctx's/VB, when to seek emergent care. discomforts, self help measures. Kick counts/FM and when to call the office for further eval. Encouraged a healthy well balanced diet, regular walking/exercise in . Hydrate well, 8-10 glasses of water daily. Encoruaged rest, length of maternity leave, sooner if needed, plans to work until her EDC. RTO 1wk, plan GBS cultures at her next visit. Visit Date: 03/21/23 Last Updated by: Richa Nguyen CNM Note author: Richa Nguyen CNM/Caterina Randall, medical billing and coding specialist 33.5 wk JOSEFA. Taking PNV. Good FM. Denies LOF, VB or abd pain. Doing well with no concerns. Good appetite and stays well hydrated. She is unsure of which BC she wants. She will think about it and discuss prior to delivery. Discussed: PTL s/s-LOF/ctx?s/VB, when to seek emergent care. Kick counts/FM and when to call the office for further eval. Encouraged a healthy well balanced diet. Hydrate well, 8-10 glasses of water daily. RTO 2 wks. Visit Date: 03/07/23 Last Updated by: Richa Nguyen CNM Note author: Richa Nguyen CNM/Rafia Silver medical billing and coding specialist 31.5 wk JOSEFA. Feeling well. Taking PNV. Hydrating well and good appetite Good FM, no LOF, VB or abd pain. She has no questions and concerns. Reports receiving iron Rx and is taking it. Flu vaccine recommended. Discussed: PTL - LOF, VB, abd pain. 28wk labs reviewed. Future GBS testing. PEC - headaches: not resolved with 2 regular strength Tylenol doses, visual disturbances warnings and when to call for further evaluation. Reviewed when to call for any VB, LOF, contractions, Kick counts reviewed and when to call for any decreased FM. Encouraged patient to sign up for patient portal. Discussed to call the service here for any emergencies/deliveries to be directed to [facility]. All of her questions and concerns were addressed to the best of my ability and shared decision making. She is agreeable to plan of care. RTO 2wks. Visit Date: 02/20/23 Last Updated by: Richa Nguyen CNM Note author: Richa Nguyen CNM/Rafia Silver medical billing and coding specialist 29.4 wk JOSEFA. Feeling well. Taking PNV. Hydrating well and good appetite Good FM, no LOF, VB or abd pain. She has no questions or concerns. Discussed: PTL - LOF, VB, abd pain. Flu vaccine and TDaP information given, agree's to have done today. 28 wk labs ordered, instructions reviewed for glucose testing. Advised to complete in the next few days. Counseled re: flu vaccine, will be available in the office soon. PEC - headaches: not resolved with 2 regular strength Tylenol doses, visual disturbances warnings and when to call for further evaluation. Reviewed when to call for any VB, LOF, contractions, Kick counts reviewed and when to call for any decreased FM. Discussed to call the service here for any emergencies/deliveries to be directed to [facility]. All of her questions and concerns were addressed to the best of my ability and shared decision making. She is agreeable to plan of care. RTO 2wks. Visit Date: 01/23/23 Last Updated by: Rafia Silver Note author: Richa Nguyen CNM/Rafia Silver medical billing and coding specialist 25.4 wk JOSEFA. Feeling well. Taking PNV. Hydrating well and good appetite Good FM, no LOF, VB or abd pain. She voices no concerns or complaints. Reports sciatica pain has improved. Discussed: PTL - LOF, VB, abd pain. Advised to eat small frequent meals, hydrate well with water and stay cool. PEC - headaches: not resolved with 2 regular strength Tylenol doses, visual disturbances warnings and when to call for further evaluation. Reviewed when to call for any VB, LOF, contractions, Kick counts reviewed and when to call for any decreased FM. Encouraged patient to sign up for patient portal. Discussed to call the service here for any emergencies/deliveries to be directed to [facility]. Offered to change practices to [facility] and meet providers sooner, she prefers to remain here for PN care. RTO 4wks. Visit Date: 12/26/22 Last Updated by: Richa Nguyen CNM Note author: Richa Nguyen CNM/Rafia Silver medical billing and coding specialist 21. 4 wk JOSEFA. Feeling well. Taking PNV. Hydrating well and good appetite Good FM, no LOF, VB or abd pain. C/o right sided sciatica. Discussed: PTL - LOF, VB, abd pain . Advised stretching, exercises, heating pad and PT for sciatica if desired, advised to message if wanting a referral Advised to eat small frequent meals and stay cool and hydrated. PEC - headaches: not resolved with 2 regular strength Tylenol doses, visual disturbances warnings and when to call for further evaluation. Reviewed when to call for any VB, LOF, contractions, Kick counts reviewed and when to call for any decreased FM. Labs reviewed, informed pp vaccinations, iron info. Discussed to call the service here for any emergencies/deliveries to be directed to [facility]. RTO in 4 weeks. Visit Date: 11/28/22 Last Updated by: Prabha Muhammad CNM Patient is here at 17 weeks 4 days for her visit. Her nuchal translucency ultrasound was done at [facility] but she did not go for the lab work as discussed at the previous visit so she today we will do the MS AFP quad screen to screen for Down syndrome and open neural tube defects. She has her anatomy survey set up for 2 weeks from now at [facility]. She is eating well doing well appropriate weight gain doing well with her baby at home and working at the [employer] in [place]. She is not having any issues or worries or concerns at all. Continue excellent self-care and we will see her in 4 weeks and review any of the above testing as appropriate. Visit Date: 11/08/22 Last Updated by: Prabha Muhammad CNM Patient is here for her new OB physical visit. 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 She has her mother here at the visit with her 8-month-old who was also doing very well. She had her nuchal translucency ultrasound at [facility] but says they did not tell her to go get any blood work after on her own though she went and she had the ultrasound to find out the gender and did a blood test for about 150 dollars and found out she is having a boy. Reviewed the blood work that we did was all within normal limits. Will request the nuchal translucency ultrasound. Given that she did not get to go for the screening tests for Downs and trisomy 18 I am ordering the quad screen be done in about 3 weeks and we can see her then so the paperwork can be filled out appropriately at that visit. She does not have any questions and she knows what to do if she has any emergency. She is said her last labor went very well and she does not have any concerns she is trying to eat really well she has been enjoying [employer] asparagus from the [employer] [place] in [place]. Visit Date: 10/15/22 Last Updated by: Patrica Albarado Warner Davis is here for nurse intake visit. She is a 22 yo with LMP 07/28/22 (certain) and HUSSAIN 05/04/23 with GA today 11w2d. Pt BMI is 28.1. Although this was unplanned Susan and her boyfriend are happy. Susan is taking PNV. She was having issue with nausea but that has resolved now. Pt does report occasional dizziness and was advised to make sure she does not skip meals, keep snacks with her and to stand slowly if she has been sitting. Pt was also advised to drink 8-10 glasses of water per day. Pt reports dizziness resolves on its own. NT US has been scheduled for 10/23/22 at [facility] and pt has also scheduled OB PE 11/08/22. Pt declined the folder as she still has the one given to her with last . We reviewed danger signs, leaf conditioner MD 16/12 and how to reach MD after hours, weekends and holidays. Pt is aware she will deliver again at [facility]. FH of diabetes and early glucose was added to labs. Pt given instructions to stop sugar at 2000 night before and have breakfast like eggs (no sugar) morning of test. Pt's questions were answered and she verbalizes understanding and agrees with plan. Results AMB Urinalysis, Automated UA Leukoctes 2 Freddie/uL Last Edit by MELISSA Carrillo on 04/03/23 11:36 UA Nitrite Negative Last Edit by Siri Schaefer Hira on 04/03/23 11:36 UA Urobilinogen 0 mg/dL Last Edit by Siri Schaefer [facility] on 04/03/23 11:3 6 UA Protein 0.5 mg/dL Last Edit by Siri Schaefer Hira on 04/03/23 11:36 UA pH 6.5 Last Edit by Siri Schaefer [facility] on 04/03/23 11:36 UA Blood 0 Milo/uL Last Edit by Siri Schaefer Hira on 04/03/23 11:36 UA Specific Dovray 1.015 Last Edit by Siri Schaefer [facility] on 04/03/23 11:36 UA Ketone Negative Last Edit by MELISSA Carrillo on 04/03/23 11:36 UA Bilirubin 0 mg/dL Last Edit by Siri Schaefer [facility] on 04/03/23 11:36 UA Glucose 0 mg/dL Last Edit by Siri Schaefer [facility] on 04/03/23 11:36 Results Reviewed Results Reviewed: Laboratory Last Values Urine pH (Auto) 6.5 04/03/23 11:35 Specific Dovray (Auto) 1.015 04/03/23 11:35 Urine Protein (Auto) 0.5 mg/dL 04/03/23 11:35 Glucose (UA)(Auto) 0 mg/dL 04/03/23 11:35 Urine Ketones (Auto) Negative 04/03/23 11:35 Urine Blood (Auto) 0 Milo/uL 04/03/23 11:35 Urine Nitrite (Auto) Negative 04/03/23 11:35 Urine Bilirubin (Auto) 0 mg/dL 04/03/23 11:35 Urine Urobilinogen (Auto) 0 mg/dL 04/03/23 11:35 Leukocyte Esterase (Auto) 2 Freddie/uL 04/03/23 11:35 Assessment & Plan Assessment & Plan (1) Encounter for supervision of normal in third trimester: Code(s): Z34.93 - Encounter for supervision of normal , unspecified, third trimester Category: Medical Plan: Discussed: BC options including OCP, Depo, Nexplanon, IUD and condoms. Can return to light exercise including post- and core strengthening exercises. Maintain a healthy diet. She will RTO in one year for AG. Orders: Orders AMB Urinalysis Automated Today Z34.93 - Encounter for supervision of normal , unspecified, third trimester Coding Level of Care Code Lolita Diagnoses Encounter for supervision of normal in third trimester Z34.93
[2023-04-03 11:28] VITALS: BP 94/58
== END 2023-04-03 11:48 | disposition home or self-care (01) ==
LOC: HO.HWS 11:26
PROVIDERS: PCP Internal Medicine; Visit Provider Advanced Practice Midwife
DX: Z34.93 Encounter for supervision of normal pregnancy, unspecified, third trimester (principal)
CPT/HCPCS: 25942

== ENCOUNTER → 2023-04-03 11:25 | Outpatient (BNVA) | payer SELFPAY | PROVIDERS: PCP Internal Medicine; Visit Provider Advanced Practice Midwife | DX: O99.213 Obesity complicating pregnancy, third trimester (principal); O26.23 Pregnancy care for patient with recurrent pregnancy loss, third trimester; O26.92 Pregnancy related conditions, unspecified, second trimester; Z3A.35 35 weeks gestation of pregnancy; Z67.20 Type B blood, Rh positive; Z83.3 Family history of diabetes mellitus | CPT/HCPCS: 81003; 99212 ==

== ENCOUNTER 2023-04-10 10:04 | Outpatient (REF) | payer SELFPAY | END 2023-04-10 10:05 | disposition home or self-care (01) | LOC: HO.LNP 10:04 | PROVIDERS: PCP Internal Medicine; Visit Provider Advanced Practice Midwife | DX: Z34.93 Encounter for supervision of normal pregnancy, unspecified, third trimester (principal) | CPT/HCPCS: 81003; 99212 ==

== ENCOUNTER 2023-04-10 10:04 | Outpatient (AMB) | payer SELFPAY ==
[2023-04-10 10:08] VITALS: BP 110/64; BMI 29.9
--- NOTE | 2023-04-10 10:08 | MHC.OFFVISPN ---
Intake Vital Signs 04/10/23 10:08 Height 5 ft 4 in Weight 174 lb BMI 29.9 BP 110/64 Intake Visit Reasons: JOSEFA Glass Cut Off Tender: Glass Cut Off Tender Present (Miley) Allergies No Known Allergies Allergy (Verified 04/10/23 10:08) Patient : Yes PFSH Medical History Overweight (BMI 25.0-29.9) No significant past medical history Surgical History No significant past surgical history Family History Maternal Grandmother Breast cancer Diabetes mellitus Maternal Aunt Diabetes mellitus Social History Household Members: Significant Other and Children Both parents involved: Yes Caregiver staying overnight: No Housing: [facility] Are you a primary caretaker to a significant other at home: No Do you presently have visiting nurse or other home services: No 75 years or older and lives alone: No Alcohol intake: never Patient Tobacco Use Status: Never used Tobacco Agree to transfusion: Yes service: No Current occupational status: employed 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 Date GA/Weeks Outcome Route Wt Inf Gender Labor Tarah Anesthesia Location Provider Complicate 01/05/21 5 spontaneous 02/17/23 40 live - full term 8 lb Male epidural [facility] none Visit HUSSAIN Calculator Estimated Delivery Date Method Current WG Current Estimate 05/04/23 LMP (Certain) 36w 4d Other Estimates 05/01/23 Ultrasound #1 37w 0d 05/01/23 Ultrasound #2 37w 0d Expected Delivery Route/Plan Specific Issues/Plans G3 ?P1 ? EDC: 05/01/23 ?by LMP c/w US? ? ?Blood type: B pos Problem List: 1. FH DM 2. closely spaced , conceived within 6months of delivery 3. Varicella non immune 4. Rubella non immune Testing: Panorama/and or First Tri screen: ? ?risk NT scan: nl Quad screen: neg FAS: nl scan Glucose: early ?98 ?28 wk glucose: ?88 CBC 1st Tri: ? 28 wk. 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 Labor, and Concerns: Labor support: Michael Plan: Epidural Feeding Plans: breast feeding control: OB Visit Log Initial Weight: 150 lb Date <del>?</del> EGA Weight Gest Week Fundal Ht Present FHR move Efface % Edema BP PrePreg We Weight GTT <del>?</del> Glucose LV Protein Blood Type 10/15/22 <del>?</del> 11w 2d 164 lb (+14 lb) 164 lb <del>?</del> 11/08/22 <del>?</del> 14w 5d 162 lb (+12 lb) 14 150 150 116/58 162 lb <del>?</del> 11/28/22 <del>?</del> 17w 4d 165 lb (+15 lb) 17 140 118/78 165 lb <del>?</del> 12/26/22 <del>?</del> 21w 4d 168 lb (+18 lb) 21 150 104/56 168 lb <del>?</del> 01/23/23 <del>?</del> 25w 4d 167 lb 8.821 oz (+17 lb 8.821 oz) 26 140 active 110/68 167 lb 8.821 oz <del>?</del> 02/20/23 <del>?</del> 29w 4d 173 lb (+23 lb) 30 150 active 100/64 173 lb <del>?</del> 03/07/23 <del>?</del> 31w 5d 173 lb (+23 lb) 32 150 active 114/60 173 lb <del>?</del> 03/21/23 <del>?</del> 33w 5d 172 lb (+22 lb) 32 160 active 106/68 172 lb <del>?</del> 04/03/23 <del>?</del> 35w 4d 175 lb (+25 lb) 34 150 94/58 175 lb <del>?</del> 04/10/23 <del>?</del> 36w 4d 174 lb (+24 lb) 36 150 110/64 174 lb <del>?</del> Notes Visit Date: 04/10/23 Last Updated by: Richa Nguyen CNM Note author: Richa Nguyen CNM/Computed Tomography Technician: Maryam Conroy. 36.4 wk JOSEFA. Taking PNV. Good FM. Denies LOF, VB or abd pain. Doing well with no OB concerns. She reports that she has a cold. Associated with a cough and nasal congestion, having a pain in her ribs from coughing . She tested for COVID on Friday04/06/2023, negative. Good appetite and stays well hydrated. She reports her last delivery went fast with the IOL. pt. requests with her GBS and gc/ct today. VE: cervix soft, vtx -2 Discussed: PTL-LOF, VB, abd pain, ctx and when to call for further evaluation. PEC - headaches: not resolved with 2 regular strength Tylenol doses, visual disturbances warnings and when to call for further evaluation. FKC: have something to eat and drink, should have 5 kicks in 1hr or 10 kicks in 2 hrs, if not call immediately for evaluation. Staying well hydrated, drink 8-10 glasses of water per day. Any contractions or active labor, go to the hospital for further evaluation. Plan Flu vaccine next week. RTO in 1 week. Visit Date: 04/03/23 Last Updated by: Richa Nguyen CNM Note author: Richa Nguyen CNM/Computed Tomography Technician: Caden Barboza. 35 wk. 4 days, JOSEFA. Taking PNV, Doing well with no concerns. Good appetite, stays well hydrated. Denies any LOF, VB, abd pain, or urinary symptoms. Good FM. She is interested in breast feeding. She works at [employer]. She reports work-related stress as she was asked to get supplies from the another restaurant and she had to climb mounds of dirt to retrieve supplies, which stressed her out. She had some contraction and was seen in the hospital on 03/29/2023. The patient and her baby were evaluated and found to be normal. Reviewed: PTL s/s-LOF/Ctx's/VB, when to seek emergent care. discomforts, self help measures. Kick counts/FM and when to call the office for further eval. Encouraged a healthy well balanced diet, regular walking/exercise in . Hydrate well, 8-10 glasses of water daily. Encoruaged rest, length of maternity leave, sooner if needed, plans to work until her EDC. RTO 1wk, plan GBS cultures at her next visit. Visit Date: 03/21/23 Last Updated by: Richa Nguyen CNM Note author: Richa Nguyen CNM/Caterina Randall, medical office scheduler 33.5 wk JOSEFA. Taking PNV. Good FM. Denies LOF, VB or abd pain. Doing well with no concerns. Good appetite and stays well hydrated. She is unsure of which BC she wants. She will think about it and discuss prior to delivery. Discussed: PTL s/s-LOF/ctx?s/VB, when to seek emergent care. Kick counts/FM and when to call the office for further eval. Encouraged a healthy well balanced diet. Hydrate well, 8-10 glasses of water daily. RTO 2 wks. Visit Date: 03/07/23 Last Updated by: Richa Nguyen CNM Note author: Richa Nguyen CNM/Rafia Silver medical office scheduler 31.5 wk JOSEFA. Feeling well. Taking PNV. Hydrating well and good appetite Good FM, no LOF, VB or abd pain. She has no questions and concerns. Reports receiving iron Rx and is taking it. Flu vaccine recommended. Discussed: PTL - LOF, VB, abd pain. 28wk labs reviewed. Future GBS testing. PEC - headaches: not resolved with 2 regular strength Tylenol doses, visual disturbances warnings and when to call for further evaluation. Reviewed when to call for any VB, LOF, contractions, Kick counts reviewed and when to call for any decreased FM. Encouraged patient to sign up for patient portal. Discussed to call the service here for any emergencies/deliveries to be directed to [facility]. All of her questions and concerns were addressed to the best of my ability and shared decision making. She is agreeable to plan of care. RTO 2wks. Visit Date: 02/20/23 Last Updated by: Richa Nguyen CNM Note author: Richa Nguyen CNM/Rafia Silver medical office scheduler 29.4 wk JOSEFA. Feeling well. Taking PNV. Hydrating well and good appetite Good FM, no LOF, VB or abd pain. She has no questions or concerns. Discussed: PTL - LOF, VB, abd pain. Flu vaccine and TDaP information given, agree's to have done today. 28 wk labs ordered, instructions reviewed for glucose testing. Advised to complete in the next few days. Counseled re: flu vaccine, will be available in the office soon. PEC - headaches: not resolved with 2 regular strength Tylenol doses, visual disturbances warnings and when to call for further evaluation. Reviewed when to call for any VB, LOF, contractions, Kick counts reviewed and when to call for any decreased FM. Discussed to call the service here for any emergencies/deliveries to be directed to [facility]. All of her questions and concerns were addressed to the best of my ability and shared decision making. She is agreeable to plan of care. RTO 2wks. Visit Date: 01/23/23 Last Updated by: Rafia Silver Note author: Richa Nguyen CNM/Rafia Silver medical office scheduler 25.4 wk JOSEFA. Feeling well. Taking PNV. Hydrating well and good appetite Good FM, no LOF, VB or abd pain. She voices no concerns or complaints. Reports sciatica pain has improved. Discussed: PTL - LOF, VB, abd pain. Advised to eat small frequent meals, hydrate well with water and stay cool. PEC - headaches: not resolved with 2 regular strength Tylenol doses, visual disturbances warnings and when to call for further evaluation. Reviewed when to call for any VB, LOF, contractions, Kick counts reviewed and when to call for any decreased FM. Encouraged patient to sign up for patient portal. Discussed to call the service here for any emergencies/deliveries to be directed to [facility]. Offered to change practices to [facility] and meet providers sooner, she prefers to remain here for PN care. RTO 4wks. Visit Date: 12/26/22 Last Updated by: Richa Nguyen CNM Note author: Richa Nguyen CNM/Rafia Silver medical office scheduler 21. 4 wk JOSEFA. Feeling well. Taking PNV. Hydrating well and good appetite Good FM, no LOF, VB or abd pain. C/o right sided sciatica. Discussed: PTL - LOF, VB, abd pain . Advised stretching, exercises, heating pad and PT for sciatica if desired, advised to message if wanting a referral Advised to eat small frequent meals and stay cool and hydrated. PEC - headaches: not resolved with 2 regular strength Tylenol doses, visual disturbances warnings and when to call for further evaluation. Reviewed when to call for any VB, LOF, contractions, Kick counts reviewed and when to call for any decreased FM. Labs reviewed, informed pp vaccinations, iron info. Discussed to call the service here for any emergencies/deliveries to be directed to [facility]. RTO in 4 weeks. Visit Date: 11/28/22 Last Updated by: Prabha Muhammad CNM Patient is here at 17 weeks 4 days for her visit. Her nuchal translucency ultrasound was done at [facility] but she did not go for the lab work as discussed at the previous visit so she today we will do the MS AFP quad screen to screen for Down syndrome and open neural tube defects. She has her anatomy survey set up for 2 weeks from now at [facility]. She is eating well doing well appropriate weight gain doing well with her baby at home and working at the [employer] in [place]. She is not having any issues or worries or concerns at all. Continue excellent self-care and we will see her in 4 weeks and review any of the above testing as appropriate. Visit Date: 11/08/22 Last Updated by: Prabha Muhammad CNM Patient is here for her new OB physical visit. 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 She has her mother here at the visit with her 8-month-old who was also doing very well. She had her nuchal translucency ultrasound at [facility] but says they did not tell her to go get any blood work after on her own though she went and she had the ultrasound to find out the gender and did a blood test for about 150 dollars and found out she is having a boy. Reviewed the blood work that we did was all within normal limits. Will request the nuchal translucency ultrasound. Given that she did not get to go for the screening tests for Downs and trisomy 18 I am ordering the quad screen be done in about 3 weeks and we can see her then so the paperwork can be filled out appropriately at that visit. She does not have any questions and she knows what to do if she has any emergency. She is said her last labor went very well and she does not have any concerns she is trying to eat really well she has been enjoying [place] asparagus from the [employer] [place] in [place]. Visit Date: 10/15/22 Last Updated by: Patrica Rousekatrina Davis is here for nurse intake visit. She is a 22 yo with LMP 07/28/22 (certain) and HUSSAIN 05/04/23 with GA today 11w2d. Pt BMI is 28.1. Although this was unplanned Susan and her boyfriend are happy. Susan is taking PNV. She was having issue with nausea but that has resolved now. Pt does report occasional dizziness and was advised to make sure she does not skip meals, keep snacks with her and to stand slowly if she has been sitting. Pt was also advised to drink 8-10 glasses of water per day. Pt reports dizziness resolves on its own. NT US has been scheduled for 10/23/22 at [facility] and pt has also scheduled OB PE 11/08/22. Pt declined the folder as she still has the one given to her with last . We reviewed danger signs, family consultant MD 16/12 and how to reach MD after hours, weekends and holidays. Pt is aware she will deliver again at [facility]. FH of diabetes and early glucose was added to labs. Pt given instructions to stop sugar at 2000 night before and have breakfast like eggs (no sugar) morning of test. Pt's questions were answered and she verbalizes understanding and agrees with plan. Review of Systems Const All systems reviewed & are unremarkable except as noted in HPI and below Results AMB Urinalysis, Automated UA Leukoctes 1 Freddie/uL Last Edit by MELISSA Carrillo on 04/10/23 10:29 UA Nitrite Negative Last Edit by Siri Schaefer Hira on 04/10/23 10:29 UA Urobilinogen 0 mg/dL Last Edit by MELISSA Carrillo on 04/10/23 10:29 UA Protein 1 mg/dL Last Edit by Siri Schaefer Hira on 04/10/23 10:29 UA pH 7.0 Last Edit by MELISSA Carrillo on 04/10/23 10:29 UA Blood 0 Milo/uL Last Edit by MELISSA Carrillo on 04/10/23 10:29 UA Specific [place] 1.015 Last Edit by MELISSA Carrillo on 04/10/23 10:29 UA Ketone Negative Last Edit by MELISSA Carrillo on 04/10/23 10:29 UA Bilirubin 0 mg/dL Last Edit by MELISSA Carrillo on 04/10/23 10:29 UA Glucose 0 mg/dL Last Edit by MELISSA Carrillo on 04/10/23 10:29 Results Reviewed Results Reviewed: Laboratory Last Values Urine pH (Auto) 7.0 04/10/23 10:28 Specific [place] (Auto) 1.015 04/10/23 10:28 Urine Protein (Auto) 1 mg/dL 04/10/23 10:28 Glucose (UA)(Auto) 0 mg/dL 04/10/23 10:28 Urine Ketones (Auto) Negative 04/10/23 10:28 Urine Blood (Auto) 0 Milo/uL 04/10/23 10:28 Urine Nitrite (Auto) Negative 04/10/23 10:28 Urine Bilirubin (Auto) 0 mg/dL 04/10/23 10:28 Urine Urobilinogen (Auto) 0 mg/dL 04/10/23 10:28 Leukocyte Esterase (Auto) 1 Freddie/uL 04/10/23 10:28 Assessment & Plan Assessment & Plan (1) Encounter for related examination in third trimester: Code(s): Z34.93 - Encounter for supervision of normal , unspecified, third trimester Category: Medical Orders: Orders AMB Urinalysis Automated Today Z34.93 - Encounter for supervision of normal , unspecified, third trimester CT NG by PCR Today Z34.93 - Encounter for supervision of normal , unspecified, third trimester Group B Strep PCR Today Z34.93 - Encounter for supervision of normal , unspecified, third trimester Coding Level of Care Code [place] Diagnoses Encounter for related examination in third trimester Z34.93
== END 2023-04-10 10:33 | disposition home or self-care (01) ==
LOC: HO.HWS 10:04
PROVIDERS: PCP Internal Medicine; Visit Provider Advanced Practice Midwife
DX: Z34.93 Encounter for supervision of normal pregnancy, unspecified, third trimester (principal)
CPT/HCPCS: 25942

== ENCOUNTER 2023-04-10 10:28 | Outpatient (REF) | payer SELFPAY ==
[2023-04-10 14:08] LABS: CT PCR NOT DETECTED (Not Detect.); NG PCR NOT DETECTED (Not Detect.)
[2023-04-11 12:22] LABS: Allergic to Penicillin? No
== END 2023-04-10 10:29 | disposition home or self-care (01) ==
LOC: HO.LAB 10:28
PROVIDERS: Visit Provider Advanced Practice Midwife
DX: Z34.93 Encounter for supervision of normal pregnancy, unspecified, third trimester (principal)
CPT/HCPCS: 0353U; 87150

== ENCOUNTER 2023-05-27 11:02 | Outpatient (AMB) | payer OTHER, SELFPAY ==
[2023-05-27 11:03] VITALS: BP 110/68; BMI 27.6
--- NOTE | 2023-05-27 11:03 | A.OFFVIS_ITS ---
Intake Vital Signs 05/27/23 11:03 Height 5 ft 4 in Weight 161 lb BMI 27.6 BP 110/68 Intake Visit Reasons: 6 week pp Intake Note: Patient have baby on 04/18/2023 in [facility] his name is Catherine Garcia) 6.8 lb. Data Visualization Developer Required: No Information Interpreted: clinical only Director Process: Director Process Present Allergies No Known Allergies Allergy (Verified 05/27/23 11:04) Medication List - Last Reconciled 05/27/23 by Prabha Muhammad CNM ferrous sulfate 325 mg PO DAILY 30 days PNV,calcium [id number]-hejn-[id number] acid 27 mg iron- 1 mg ( Vitamins Plus Low Iron) 1 tab PO DAILY Is last menstrual period known: Yes Last menstrual period: 05/26/23 [facility] Medical History Overweight (BMI 25.0-29.9) No significant past medical history Surgical History No significant past surgical history Family History Maternal Grandmother Breast cancer Diabetes mellitus Maternal Aunt Diabetes mellitus Social History Household Members: Significant Other and Children Both parents involved: Yes Caregiver staying overnight: No [facility] Are you a primary home care physical therapist to a significant other at home: No Do you presently have visiting nurse or other home services: No 75 years or older and lives alone: No Alcohol intake: never Patient Tobacco Use Status: Never used Tobacco Agree to transfusion: Yes service: No Current occupational status: employed 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
--- NOTE | 2023-05-27 11:24 | A.OFFVISPN_ITS ---
Intake Vital Signs 05/27/23 11:03 Height 5 ft 4 in Weight 161 lb BMI 27.6 BP 110/68 Intake Visit Reasons: 6 week pp Intake Note: Patient have second baby on 04/18/23 , in [facility],his name is (Jose) he was born 6.8 lb. Marketing Finance Specialist Required: No Information Interpreted: clinical only Seeing Eye Dog Teacher: Seeing Eye Dog Teacher Present Allergies No Known Allergies Allergy (Verified 05/27/23 11:04) Medication List - Last Reconciled 05/27/23 by Prabha Muhammad CNM ferrous sulfate 325 mg PO DAILY 30 days PNV,calcium 91-onxm-kuirp acid 27 mg iron- 1 mg ( Vitamins Plus Low Iron) 1 tab PO DAILY Is last menstrual period known: Yes Last menstrual period: 05/26/23 Patient : No Do you need a note to return to daycare/school/sports/work: No PFSH Medical History Overweight (BMI 25.0-29.9) No significant past medical history Surgical History No significant past surgical history Family History Maternal Grandmother Breast cancer Diabetes mellitus Maternal Aunt Diabetes mellitus Social History Household Members: Significant Other and Children Both parents involved: Yes Caregiver staying overnight: No Housing: Condominium Are you a primary vocational childcare teacher to a significant other at home: No Do you presently have visiting nurse or other home services: No 75 years or older and lives alone: No Alcohol intake: never Patient Tobacco Use Status: Never used Tobacco Agree to transfusion: Yes Patient : No service: No Current occupational status: employed 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 Date GA/Weeks Outcome Route Wt Inf Gender Labor Tarah Anesthesia Location Provider Complicate 01/05/21 5 spontaneous 02/17/23 40 live - full term 8 lb Male epidural [facility] none Visit HUSSAIN Calculator Estimated Delivery Date Method Current WG Current Estimate 05/04/23 LMP (Certain) 43w 2d Other Estimates 05/01/23 Ultrasound #1 43w 5d 05/01/23 Ultrasound #2 43w 5d Expected Delivery Route/Plan Specific Issues/Plans G3 ?P1 ? EDC: 05/01/23 ?by LMP c/w US? ? ?Blood type: B pos Problem List: 1. FH DM 2. closely spaced , conceived within 6months of delivery 3. Varicella non immune 4. Rubella non immune Testing: Panorama/and or First Tri screen: ? ?risk NT scan: nl Quad screen: neg FAS: nl scan Glucose: early ?98 ?28 wk glucose: ?88 CBC 1st Tri: ? 28 wk. 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 Labor, and Concerns: Labor support: Michael Plan: Epidural Feeding Plans: breast feeding control: OB Visit Log Initial Weight: 150 lb Date -?-?-?-?-?-?-?-?-?-?-?-?- EGA Weight Gest Week Fundal Ht Present FHR move Efface % Edema BP PrePreg We Weight GTT -?-?-?-?-?-?-?-?-?-?-?-?- Glucose LV Protein Blood Type 10/15/22 -?-?-?-?-?-?-?-?-?-?-?-?- 11w 2d 164 lb (+14 lb) 164 lb -?-?-?-?-?-?-?-?-?-?-?-?- 11/08/22 -?-?-?-?-?-?-?-?-?-?-?-?- 14w 5d 162 lb (+12 lb) 14 150 150 116/58 1 62 lb -?-?-?-?-?-?-?-?-?-?-?-?- 11/28/22 -?-?-?-?-?-?-?-?-?-?-?-?- 17w 4d 165 lb (+15 lb) 17 140 118/78 165 l b -?-?-?-?-?-?-?-?-?-?-?-?- 12/26/22 -?-?-?-?-?-?-?-?-?-?-?-?- 21w 4d 168 lb (+18 lb) 21 150 104/56 168 l b -?-?-?-?-?-?-?-?-?-?-?-?- 01/23/23 -?-?-?-?-?-?-?-?-?-?-?-?- 25w 4d 167 lb 8.821 oz (+17 lb 8.821 oz) 26 140 active 110/68 167 lb 8.821 oz -?-?-?-?-?-?-?-?-?-?-?-?- 02/20/23 -?-?-?-?-?-?-?-?-?-?-?-?- 29w 4d 173 lb (+23 lb) 30 150 active 100/64 173 lb -?-?-?-?-?-?-?-?-?-?-?-?- 03/07/23 -?-?-?-?-?-?-?-?-?-?-?-?- 31w 5d 173 lb (+23 lb) 32 150 active 114/60 173 lb -?-?-?-?-?-?-?-?-?-?-?-?- 03/21/23 -?-?-?-?-?-?-?-?-?-?-?-?- 33w 5d 172 lb (+22 lb) 32 160 active 106/68 172 lb -?-?-?-?-?-?-?--?-?-?-?-?- 04/03/23 -?-?-?-?-?-?-?-?-?-?-?-?- 35w 4d 175 lb (+25 lb) 34 150 94/58 175 lb -?-?-?--?-?-?-?-?-?-?-?-?- 04/10/23 -?-?-?-?-?-?-?-?-?-?-?-?- 36w 4d 174 lb (+24 lb) 36 150 110/64 174 lb -?-?-?-?-?-?-?-?-?-?-?-?- 05/27/23 -?-?-?-?-?-?-?-?-?-?-?-?- 43w 2d 161 lb (+11 lb) 12 110/68 161 lb -?-?-?-?-?-?-?-?-?-?-?-?- Notes Visit Date: 05/27/23 Last Updated by: Prabha Muhammad CNM Patient is here at the [facility] for her hips 6 week visit she delivered on April 18 at [facility] she was 37 weeks. She said the delivery went fine but the during the epidural her dura was punctured and immediately she had a very severe spinal headache she said that the anesthesiologist explained to her that a blood patch would have to be done blind and he normally would like to have an x-ray in order to do it. So she ended up not getting it until she went home and nothing she did either drinking water or caffeine or anything helped and she had to return to the hospital for blood patch and that helped it was a full week later. She is her baby and doing very well and has a good supply and she started pumping yesterday and got 5 oz out and she was worn during if she was making enough and now she thinks she is. The baby nursed about an hour ago and her breasts or filling up already. She has not had sex yet though she thinks her periods started yesterday with some brown blood. It is not very heavy at this point. She had a Nexplanon in the past that she took out in order to get the 1st time and she would like to have that replaced. She had no problems with weight gain or other issues. I did explain to her that ideally it would be inserted at the beginning of a. She is fine with using condoms from this point forward until the Nexplanon is inserted. Since we do not have any forms for her to sign in this office she will need to stop by the office in order to sign the form for the Nexplanon and then when the Nexplanon arrives it would be ideally scheduled for insertion the 1st her 2nd day of her period it most likely will be with the next cycle as it takes time to 0 order. Patient does not have any other questions I re recommend she stay on the vitamins as long as she is and additionally I did discuss the theoretical possibility of dimunition of breast milk supply with the Nexplanon however she has been nursing exclusively already for over 6 weeks 7 weeks, and by the time the Nexplanon arrives it will be another month at least so it should have Um much diminished affect on her. She does not need vitamin refills at this time. We will see her for Nexplanon insertion with her menses. The baby is sleeping well and she is sleeping well and she is not having any issues with depression. Visit Date: 04/10/23 Last Updated by: Richa Nguyen CNM Note author: Richa Nguyen CNM/Blunger: Maryam Conroy. 36.4 wk JOSEFA. Taking PNV. Good FM. Denies LOF, VB or abd pain. Doing well with no OB concerns. She reports that she has a cold. Associated with a cough and nasal congestion, having a pain in her ribs from coughing . She tested for COVID on Friday04/06/2023, negative. Good appetite and stays well hydrated. She reports her last delivery went fast with the IOL. pt. requests with her GBS and gc/ct today. VE: cervix soft, vtx -2 Discussed: PTL-LOF, VB, abd pain, ctx and when to call for further evaluation. PEC - headaches: not resolved with 2 regular strength Tylenol doses, visual disturbances warnings and when to call for further evaluation. FKC: have something to eat and drink, should have 5 kicks in 1hr or 10 kicks in 2 hrs, if not call immediately for evaluation. Staying well hydrated, drink 8-10 glasses of water per day. Any contractions or active labor, go to the hospital for further evaluation. Plan Flu vaccine next week. RTO in 1 week. Visit Date: 04/03/23 Last Updated by: Richa Nguyen CNM Note author: Richa Nguyen CNM/Blunger: Caden Barboza. 35 wk. 4 days, JOSEFA. Taking PNV, Doing well with no concerns. Good appetite, stays well hydrated. Denies any LOF, VB, abd pain, or urinary symptoms. Good FM. She is interested in breast feeding. 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 She reports work-related stress as she was asked to get supplies from the another restaurant and she had to climb mounds of dirt to retrieve supplies, which stressed her out. She had some contraction and was seen in the hospital on 03/29/2023. The patient and her baby were evaluated and found to be normal. Reviewed: PTL s/s-LOF/Ctx's/VB, when to seek emergent care. discomforts, self help measures. Kick counts/FM and when to call the office for further eval. Encouraged a healthy well balanced diet, regular walking/exercise in . Hydrate well, 8-10 glasses of water daily. Encoruaged rest, length of maternity leave, sooner if needed, plans to work until her EDC. RTO 1wk, plan GBS cultures at her next visit. Visit Date: 03/21/23 Last Updated by: Richa Nguyen CNM Note author: Richa Nguyen CNM/Caterina Randall, medical clinic manager 33.5 wk JOSEFA. Taking PNV. Good FM. Denies LOF, VB or abd pain. Doing well with no concerns. Good appetite and stays well hydrated. She is unsure of which BC she wants. She will think about it and discuss prior to delivery. Discussed: PTL s/s-LOF/ctx?s/VB, when to seek emergent care. Kick counts/FM and when to call the office for further eval. Encouraged a healthy well balanced diet. Hydrate well, 8-10 glasses of water daily. RTO 2 wks. Visit Date: 03/07/23 Last Updated by: Richa Nguyen CNM Note author: Richa Nguyen CNM/Rafia Silver medical clinic manager 31.5 wk JOSEFA. Feeling well. Taking PNV. Hydrating well and good appetite Good FM, no LOF, VB or abd pain. She has no questions and concerns. Reports receiving iron Rx and is taking it. Flu vaccine recommended. Discussed: PTL - LOF, VB, abd pain. 28wk labs reviewed. Future GBS testing. PEC - headaches: not resolved with 2 regular strength Tylenol doses, visual disturbances warnings and when to call for further evaluation. Reviewed when to call for any VB, LOF, contractions, Kick counts reviewed and when to call for any decreased FM. Encouraged patient to sign up for patient portal. Discussed to call the service here for any emergencies/deliveries to be directed to [facility]. All of her questions and concerns were addressed to the best of my ability and shared decision making. She is agreeable to plan of care. RTO 2wks. Visit Date: 02/20/23 Last Updated by: Richa Nguyen CNM Note author: Richa Nguyen CNM/Rafia Silver medical clinic manager 29.4 wk JOSEFA. Feeling well. Taking PNV. Hydrating well and good appetite Good FM, no LOF, VB or abd pain. She has no questions or concerns. Discussed: PTL - LOF, VB, abd pain. Flu vaccine and TDaP information given, agree's to have done today. 28 wk labs ordered, instructions reviewed for glucose testing. Advised to complete in the next few days. Counseled re: flu vaccine, will be available in the office soon. PEC - headaches: not resolved with 2 regular strength Tylenol doses, visual disturbances warnings and when to call for further evaluation. Reviewed when to call for any VB, LOF, contractions, Kick counts reviewed and when to call for any decreased FM. Discussed to call the service here for any emergencies/deliveries to be directed to [facility]. All of her questions and concerns were addressed to the best of my ability and shared decision making. She is agreeable to plan of care. RTO 2wks. Visit Date: 01/23/23 Last Updated by: Rafia Silver Note author: Richa Nguyen CNM/Rafia Silver medical clinic manager 25.4 wk JOSEFA. Feeling well. Taking PNV. Hydrating well and good appetite Good FM, no LOF, VB or abd pain. She voices no concerns or complaints. Reports sciatica pain has improved. Discussed: PTL - LOF, VB, abd pain. Advised to eat small frequent meals, hydrate well with water and stay cool. PEC - headaches: not resolved with 2 regular strength Tylenol doses, visual disturbances warnings and when to call for further evaluation. Reviewed when to call for any VB, LOF, contractions, Kick counts reviewed and when to call for any decreased FM. Encouraged patient to sign up for patient portal. Discussed to call the service here for any emergencies/deliveries to be directed to [facility]. Offered to change practices to [facility] and meet providers sooner, she prefers to remain here for PN care. RTO 4wks. Visit Date: 12/26/22 Last Updated by: Richa Nguyen CNM Note author: Richa Nguyen CNM/Rafia Silver medical clinic manager 21. 4 wk JOSEFA. Feeling well. Taking PNV. Hydrating well and good appetite Good FM, no LOF, VB or abd pain. C/o right sided sciatica. Discussed: PTL - LOF, VB, abd pain . Advised stretching, exercises, heating pad and PT for sciatica if desired, advised to message if wanting a referral Advised to eat small frequent meals and stay cool and hydrated. PEC - headaches: not resolved with 2 regular strength Tylenol doses, visual disturbances warnings and when to call for further evaluation. Reviewed when to call for any VB, LOF, contractions, Kick counts reviewed and when to call for any decreased FM. Labs reviewed, informed pp vaccinations, iron info. Discussed to call the service here for any emergencies/deliveries to be directed to [facility]. RTO in 4 weeks. Visit Date: 11/28/22 Last Updated by: Prabha Muhammad CNM Patient is here at 17 weeks 4 days for her visit. Her nuchal translucency ultrasound was done at [facility] but she did not go for the lab work as discussed at the previous visit so she today we will do the [place] AFP quad screen to screen for Down syndrome and open neural tube defects. She has her anatomy survey set up for 2 weeks from now at [facility]. She is eating well doing well appropriate weight gain doing well with her baby at home and working at the [employer] in [place]. She is not having any issues or worries or concerns at all. Continue excellent self-care and we will see her in 4 weeks and review any of the above testing as appropriate. Visit Date: 11/08/22 Last Updated by: Prabha Muhammad CNM Patient is here for her new OB physical visit. 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 She has her mother here at the visit with her 8-month-old who was also doing very well. She had her nuchal translucency ultrasound at [facility] but says they did not tell her to go get any blood work after on her own though she went and she had the ultrasound to find out the gender and did a blood test for about 150 dollars and found out she is having a boy. Reviewed the blood work that we did was all within normal limits. Will request the nuchal translucency ultrasound. Given that she did not get to go fo r the screening tests for Downs and trisomy 18 I am ordering the quad screen be done in about 3 weeks and we can see her then so the paperwork can be filled out appropriately at that visit. She does not have any questions and she knows what to do if she has any emergency. She is said her last labor went very well and she does not have any concerns she is trying to eat really well she has been enjoying [employer] asparagus from the [employer] [place] in [place]. Visit Date: 10/15/22 Last Updated by: Patrica Albarado Warner Davis is here for nurse intake visit. She is a 22 yo with LMP 07/28/22 (certain) and HUSSAIN 05/04/23 with GA today 11w2d. Pt BMI is 28.1. Although this was unplanned Susan and her boyfriend are happy. Susan is taking PNV. She was having issue with nausea but that has resolved now. Pt does report occasional dizziness and was advised to make sure she does not skip meals, keep snacks with her and to stand slowly if she has been sitting. Pt was also advised to drink 8-10 glasses of water per day. Pt reports dizziness resolves on its own. NT US has been scheduled for 10/23/22 at [facility] and pt has also scheduled OB PE 11/08/22. Pt declined the folder as she still has the one given to her with last . We reviewed danger signs, city distribution clerk MD 16/12 and how to reach MD after hours, weekends and holidays. Pt is aware she will deliver again at [facility]. FH of diabetes and early glucose was added to labs. Pt given instructions to stop sugar at 2000 night before and have breakfast like eggs (no sugar) morning of test. Pt's questions were answered and she verbalizes understanding and agrees with plan. Exam Const Other: Breasts are filling in good condition nipples in good condition. Has good breast support abdomen soft no diastasis palpable fundus below symphysis pubis nontender pelvic exam deferred no visible blood from menses externally. Constitutional General: healthy appearing, comfortable, no acute distress, well developed and alert Nutritional Appearance: average body habitus Orientation/consciousness: patient oriented x3 Constitutional Limitations: no limitations [facility] Head: normocephalic Neck Neck: normal visual inspection Chest Chest palpation & inspection: normal inspection of the chest Breast/axilla inspection: normal inspection of the breasts and normal inspection of the axillae Breast/axilla palpation: normal palpation of the breasts and normal palpation of the axillae Resp Effort & Inspection: normal respiratory effort GI Inspection (GI): normal to inspection and No Abdominal wall edema Palpation (GI): Soft to palpation and nontender External Female Exam: normal external appearance and normal appearance of the urethra Urethra: normal appearance of the urethra Coding Level of Care Code [place] Diagnoses care and examination of lactating mother Z39.1 Counseling for initiation of control method Z30.09 Assessment & Plan Assessment & Plan (1) care and examination of lactating mother: Code(s): Z39.1 - Encounter for care and examination of lactating mother Category: Medical (2) Counseling for initiation of control method: Comment: Wants Nexplanon. Will use condoms until insertion of Nexplanon with next menses it needs to be ordered and sent to [facility]. Code(s): Z30.09 - Encounter for other general counseling and advice on contraception Category: Medical Plan Patient is here at the [facility] office for her hips 6 week visit she delivered on April 18 at [facility] she was 37 weeks. She said the delivery went fine but the during the epidural her dura was punctured and immediately she had a very severe spinal headache she said that the anesthesiologist explained to her that a blood patch would have to be done blind and he normally would like to have an x-ray in order to do it. So she ended up not getting it until she went home and nothing she did either drinking water or caffeine or anything helped and she had to return to the hospital for blood patch and that helped it was a full week later. She is her baby and doing very well and has a good supply and she started pumping yesterday and got 5 oz out and she was worn during if she was making enough and now she thinks she is. The baby nursed about an hour ago and her breasts or filling up already. She has not had sex yet though she thinks her periods started yesterday with some brown blood. It is not very heavy at this point. She had a Nexplanon in the past that she took out in order to get the 1st time and she would like to have that replaced. She had no problems with weight gain or other issues. I did explain to her that ideally it would be inserted at the beginning of a. She is fine with using condoms from this point forward until the Nexplanon is inserted. Since we do not have any forms for her to sign in this office she will need to stop by the office in order to sign the form for the Nexplanon and then when the Nexplanon arrives it would be ideally scheduled for insertion the her 2nd day of her period it most likely will be with the next cycle as it takes time to 0 order. Patient does not have any other questions I re recommend she stay on the vitamins as long as she is and additionally I did discuss the theoretical possibility of dimunition of breast milk supply with the Nexplanon however she has been nursing exclusively already for over 6 weeks 7 weeks, and by the time the Nexplanon arrives it will be another month at least so it should have Um much diminished affect on her. She does not need vitamin refills at this time. We will see her for Nexplanon insertion with her menses. The baby is sleeping well and she is sleeping well and she is not having any issues with depression.
== END 2023-05-27 12:11 | disposition home or self-care (01) ==
LOC: HO.HWSM 11:02
PROVIDERS: PCP Internal Medicine; Visit Provider Advanced Practice Midwife
DX: Z39.1 Encounter for care and examination of lactating mother (principal); Z30.09 Encounter for other general counseling and advice on contraception
CPT/HCPCS: 59430

== ENCOUNTER → 2023-05-27 11:02 | Outpatient (BNVA) | payer OTHER, SELFPAY | PROVIDERS: PCP Internal Medicine; Visit Provider Advanced Practice Midwife ==

== ENCOUNTER 2023-08-29 13:35 | Outpatient (AMB) | payer OTHER, SELFPAY ==
--- NOTE | 2023-08-29 13:44 | A.OFFVIS_ITS ---
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 Allergies No Known Allergies Allergy (Verified 08/29/23 13:46) Medication List - Last Reconciled 08/29/23 by Prabha Muhammad CNM ferrous sulfate 325 mg PO DAILY 30 days PNV,calcium 35-flzo-sccrr acid 27 mg iron- 1 mg ( Vitamins Plus Low Iron) 1 tab PO DAILY Is last menstrual period known: Yes Last menstrual period: 08/25/23 Post menopausal: No PFSH Medical History Overweight (BMI 25.0-29.9) No significant past medical history Surgical History No significant past surgical history Family History Maternal Grandmother Breast cancer Diabetes mellitus Maternal Aunt Diabetes mellitus Social History Household Members: Significant Other and Children Both parents involved: Yes Caregiver staying overnight: No Housing: Condominium Are you a primary wound care center consultant to a significant other at home: No Do you presently have visiting nurse or other home services: No 75 years or older and lives alone: No Alcohol intake: never Patient Tobacco Use Status: Never used Tobacco Agree to transfusion: Yes service: No Current occupational status: employed 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 [employer] Current occupational exposures/hazards: No Cognitive needs: No Hearing needs: No Vision needs: No Female Reproductive History Menstrual Age of Menarche: 12 Duration of menses: 3-5 days Date of last menstrual period: 08/25/23 control method: none Total pregnancies: 2 Full term: 2 Number of Living Children: 2 Physical Exam Vital Signs: Last Vital Signs BP 106/70 08/29/23 13:45 BMI result Body Mass Index 27.8 Results Reviewed Results Reviewed: Name: Susan Leggett Age/Sex: 21/F Attending: Richa Nguyen CNM : 2000 Submitted by: Richa Nguyen CNM Copies to: Cristian Lang MD MR #: [id number] Status: DEP REF Collected: 02/26/21 Location: .LAB Received: 02/27/21 Interpretation Satisfactory for evaluation. Mild inflammation. Negative for intraepithelial lesion or malignancy. Clinical Information LMP: 02/23/21 Previous PAP test: Never Material Received ThinPrep- Cervical Copies To Cristian Lang MD [address] [place] [address] [place] [id number] Richa Nguyen CNM [address] [place] [address] DrDarrel [facility] [place] [id number] Electronically Signed By: KASSY Vargas (ASCP) 03/09/21 0955 The Pap Test is a screening procedure with the inherent possibility of both false negative and false positive results. Results should be interpreted in the context of historic and current clinical findings. Reliability of the Pap Test is enhanced by performing the test on a regular repetitive basis. Patient: Susan Leggett Age/Sex: 21/F MR#: [id number] Page 1 of 1 Assessment & Plan Assessment & Plan (1) Counseling for initiation of control method: Comment: Wants Nexplanon. Will use condoms until insertion of Nexplanon with next menses it needs to be ordered and sent to [facility]. Code(s): Z. - Encounter for other general counseling and advice on contraception Plan She is very sure that she wants the Nexplanon so she is signing the consent for the Nexplanon and when it arrives to the office she will receive a phone call and thereafter she should call us at the very start of her period and we will endeavor to insert it on the 2nd or 3rd day of her menses which last about 4 days. She says the day 2 is usually the heaviest. I recommend she continue to use condoms from this point forward until at least 2 weeks after the insertion just to cover a possible ovulation around the time of insertion that can not be prevented just to be on the safe side. Her babies are doing well 1 is 5 months and 1 is 18 months. 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 Reviewed why we time the insertion to go along with her menses. Coding Level of Care Code Est Pt Level 3 (88011) Diagnoses Counseling for initiation of control method Z
[2023-08-29 13:45] VITALS: BP 106/70; BMI 27.8
== END 2023-08-29 14:38 | disposition home or self-care (01) ==
LOC: HO.HWSM 13:35
PROVIDERS: PCP Internal Medicine; Visit Provider Advanced Practice Midwife
DX: Z30.09 Encounter for other general counseling and advice on contraception (principal)
CPT/HCPCS: 99213

== ENCOUNTER → 2023-08-29 13:35 | Outpatient (BNVA) | payer OTHER, SELFPAY | PROVIDERS: PCP Internal Medicine; Visit Provider Advanced Practice Midwife | DX: Z30.09 Encounter for other general counseling and advice on contraception (principal) | CPT/HCPCS: 99212 ==